=== PATIENT | female | born 1980 | race Caucasian/White ===

== ENCOUNTER → 2018-04-21 | Outpatient (CLI) | payer BC ==
--- NOTE | 2018-04-21 15:28 | CONS ---
CONSULTATION DATE OF SERVICE: 04/21/2018 A 37-year-old lady who has been evaluated in the [facility] for possible obstructive sleep apnea and for sleep-walking. HISTORY OF PRESENT ILLNESS, SLEEP/WAKE EVALUATION: Patient has history of sleep terrors in young childhood and a young age. Also, possible history of restless legs syndrome. She was treated when she was a 17-year-old, she was treated for these disorders, later with clonazepam. Recently, no sleep terrors, but she still has episodes when she goes out of bed and does not remember these episodes. No out of dream movements. Usually no dreams. Her sleep schedule from 11 p.m. to 8 a.m. basically 7 days a week. Sometimes she has problem with falling asleep for more than 30 minutes, but not more than 1 hour. No TV in bedroom. She wakes up from sleep several times with possible nocturia. Sometimes wake up with panic attacks, screaming and walking. Again, she does not remember these episodes. In the morning. she wakes up tired, worries about her sleep. Garrison Sleepiness Scale is 7. Oximetry was done, which showed episodes of oxygen desaturation during the sleep. PAST MEDICAL HISTORY: Positive for hypertension, polycystic ovary. MEDICATIONS: Atenolol, chlorthalidone, metformin, potassium supplement. PAST SURGICAL HISTORY: None. SOCIAL HISTORY: Negative for smoking. Alcohol consumption occasional. FAMILY HISTORY: Hypertension, hyperlipidemia, arthritis, sinus headaches, sleep apnea, snoring, acid reflux, nasal polyps. REVIEW OF SYSTEMS: Awakenings from sleep, episodes of sleep walking. PHYSICAL EXAM: A pleasant lady without distress, BP 123/87, HR 80, RR 16, height 5 and 4, weight 228, body mass index 39.1, temperature 97.3, oxygen saturation at room air 98%. Oropharynx extremely low position of soft palate. Mallampati IV. Neck is 15-1/2 inches in circumference. ABDOMEN: Obese. HEENT PERRLA, EOMI, evaluation of oropharynx showed tongue protrudes midline. LUNGS Clear to percussion and to auscultation. Good air exchange. No wheezing or rhonchi. HEART S1, S2 regular. No murmurs, gallops, or rubs. EXTREMITIES No clubbing or cyanosis. ONCOLOGY NAVIGATOR Awake, alert, and oriented X3. Cranial nerves 2 to 7 intact. There is no fasciculation or atrophy. noted. No focal deficits observed. IMPRESSION: 1. Snoring, multiple awakenings from sleep, extremely low position of soft palate, obstructive sleep apnea-hypopnea syndrome. 2. History of sleep terrors sleep terrors. 3. Episodes of sleepwalking. 4. Obesity, body mass index 39.1. 5. Hypertension. 6. Polycystic ovary. PLAN: 1. Polysomnography for evaluation of patient's breathing during sleep. 2. CPAP/BiPAP titration if sleep study confirms obstructive sleep apnea-hypopnea syndrome. 3. Preferable position during sleep on the side. 4. No driving if patient feels any sleepiness. 5. I will see patient for follow up visit to explain results of testing and following plan. Thank you very much for allowing me to participate in the management of your patient. Sincerely, Macyol Wilkes MD, PhD, FAASM Diplomat of [employer] [place] [place] Adjuster of [facility] MMODL / IJN: [id number] /
== END ==
LOC: SLEEP 13:26
PROVIDERS: ATTEND Internal Medicine
DX: G47.33 Obstructive sleep apnea (adult) (pediatric) (principal); F51.3 Sleepwalking [somnambulism]; F51.4 Sleep terrors [night terrors]; E66.9 Obesity, unspecified; I10 Essential (primary) hypertension; E28.2 Polycystic ovarian syndrome; Z68.39 Body mass index [BMI] 39.0-39.9, adult; Z79.899 Other long term (current) drug therapy; Z79.84 Long term (current) use of oral hypoglycemic drugs
CPT/HCPCS: 99211

== ENCOUNTER 2018-05-04 10:23 | Inpatient (IN) | payer BC ==
--- NOTE | 2018-05-04 10:58 | ED ---
General Adult HPI - General Chief complaint: Abdominal Pain Stated complaint: Cramping, poss UTI Source: patient Mode of arrival: ambulatory Limitations: no limitations - History of Present Illness Initial comments: Dictation was produced using Deans[employer] dictation software. please excuse any grammatical, word or spelling errors. Chief Complaint: 37-year-old female past medical history polycystic ovarian syndrome and hypertension presents with suprapubic pain. History of Present Illness: She has a 37-year-old female presents with suprapubic pain. Patient was seen by her primary care physician 2 days ago where she was diagnosed with urinary tract infection. Patient is given prescription for Bactrim. She states that the urinalysis was unequivocal yesterday. Patient states she recently started her period. She states she's been having worsening pain to the suprapubic area. She does have some mild burning with urination. Patient has had menstrual cramps in the past however she reports that this is slightly different. No nausea or vomiting. No diarrhea or changes in bowel habits. She states she had a fever yesterday of 101. She however does not feel like she is having constitutional symptoms now. She feels as though the pain is worse in her left lower quadrant. The ROS documented in this emergency department record has been reviewed and confirmed by me. Those systems with pertinent positive or negative responses have been documented in the HPI. All other systems are other negative and/or noncontributory. - Related Data Home Medications Medication Instructions Recorded Confirmed Acetaminophen Tab [Tylenol Tab] 1,000 mg PO Q6HR PRN 05/04/18 05/04/18 Atenolol/Chlorthalidone 0.5 tab PO BID 05/04/18 05/04/18 [Atenolol-Chlorthalidone 50-25] Potassium Gluconate 99 mg PO W/SUPPER 05/04/18 05/04/18 Sulfamethox-Tmp 800-160Mg [Bactrim 1 tab PO Q12HR 05/04/18 05/04/18 DS 800-160 mg] metFORMIN HCL [metFORMIN HCL ER] 750 mg PO W/SUPPER 05/04/18 05/04/18 Allergies Allergy/AdvReac Type Severity Reaction Status Date / Time No Known Allergies Allergy Verified 05/04/18 11:03 Review of Systems ROS Statement: Those systems with pertinent positive or pertinent negative responses have been documented in the HPI. ROS Other: All systems not noted in ROS Statement are negative. Past Medical History Past Medical History: Hypertension Additional Past Medical History / Comment(s): PCOS History of Any Multi-Drug Resistant Organisms: None Reported Past Surgical History: No Surgical Hx Reported Past Psychological History: No Psychological Hx Reported Smoking Status: Never smoker Past Alcohol Use History: None Reported Past Drug Use History: None Reported General Exam - General Exam Comments Initial Comments: PHYSICAL EXAM: General Impression: Alert and oriented x3, not in acute distress HEENT: Normocephalic atraumatic, extra-ocular movements intact, pupils equal and reactive to light bilaterally, mucous membranes moist. Cardiovascular: Heart regular rate and rhythm, S1&S2 audible, no murmurs, rubs or gallops Chest: Lungs clear to auscultation bilaterally, no rhonchi, no wheeze, no rales Abdomen: Mild tenderness to palpation in the left lower quadrant. Musculoskeletal: Pulses present and equal in all extremities, no peripheral edema Motor: Power 5/5 bilaterally, no focal deficits noted Neurological: CN II-XII grossly intact, no focal motor or sensory deficits noted Skin: Intact with no visualized rashes Psych: Normal affect and mood Limitations: no limitations Course Vital Signs 05/04/18 10:39 Temperature 97.6 F Pulse Rate 87 Respiratory 16 Rate Blood Pressure 134/91 O2 Sat by Pulse 97 Oximetry Medical Decision Making - Medical Decision Making ED course:-year-old female presents with pelvic pain and urinary symptoms. Vital signs upon arrival are within acceptable limits.Return evaluation obtained. Patient is leukocytosis of 20.3. There is high neutrophil predilection. Metabolic panel is unremarkable. Urinalysis shows 25 red blood cells. Transvaginal ultrasound was obtained looking for pelvic pathology. No findings seen on transvaginal ultrasound to account for patient's symptoms. CT abdomen and pelvis was obtained showing acute diverticulitis at the mid sigmoid with perforation and air tracking up to the peritoneum approximately 14 cm. discussed patient case with general surgeon who requests to keep the patient down here in emergency department for evaluation and possible operative intervention.Patient was evaluated by Dr. Woodall who requests the patient be admitted to his service. He states he will observe the patient to determine need for operative intervention. At this time patient is not cooperative patient to operating room. He does request so sent. Patient admitted to general surgery. - Lab Data Result diagrams: 05/04/18 11:18 05/04/18 11:18 Lab Results 05/04/18 05/04/18 05/04/18 Range/Units 11:18 11:18 11:18 WBC (3.8-10.6) k/uL RBC (3.80-5.40) m/uL Hgb (11.4-16.0) gm/dL Hct (34.0-46.0) % MCV (80.0-100.0) fL MCH (25.0-35.0) pg MCHC (31.0-37.0) g/dL RDW (11.5-15.5) % Plt Count (150-450) k/uL Neutrophils % (Manual) % Band Neutrophils % % Lymphocytes % (Manual) % Monocytes % (Manual) % Neutrophils # (Manual) (1.3-7.7) k/uL Lymphocytes # (Manual) (1.0-4.8) k/uL Monocytes # (Manual) (0-1.0) k/uL Nucleated RBCs (0-0) /100 WBC Manual Slide Review RBC Morphology Sodium 138 (137-145) mmol/L Potassium 3.6 (3.5-5.1) mmol/L Chloride 97 L (98-107) mmol/L Carbon Dioxide 27 (22-30) mmol/L Anion Gap 14 mmol/L BUN 12 (7-17) mg/dL Creatinine 0.81 (0.52-1.04) mg/dL Est GFR (CKD-EPI)AfAm >90 (>60 ml/min/1.73 sqM) Est GFR (CKD-EPI)NonAf >90 (>60 ml/min/1.73 sqM) Glucose 119 H (74-99) mg/dL Calcium 8.9 (8.4-10.2) mg/dL Urine Color Yellow Urine Appearance Clear (Clear) Urine pH 6.5 (5.0-8.0) Ur Specific Harper 1.007 (1.001-1.035) Urine Protein Trace H (Negative) Urine Glucose (UA) Negative (Negative) Urine Ketones Negative (Negative) Urine Blood Moderate H (Negative) Urine Nitrite Negative (Negative) Urine Bilirubin Negative (Negative) Urine Urobilinogen 4.0 (<2.0) mg/dL Ur Leukocyte Esterase Negative (Negative) Urine RBC 25 H (0-5) /hpf Urine WBC 5 (0-5) /hpf Ur Squamous Epith Cells <1 (0-4) /hpf Urine Mucus Rare H (None) /hpf Urine HCG, Qual Not Detected (Not Detectd) 05/04/18 Range/Units 11:18 WBC 28.3 H (3.8-10.6) k/uL RBC 5.06 (3.80-5.40) m/uL Hgb 14.1 (11.4-16.0) gm/dL Hct 42.4 (34.0-46.0) % MCV 83.8 (80.0-100.0) fL MCH 27.8 (25.0-35.0) pg MCHC 33.2 (31.0-37.0) g/dL RDW 14.8 (11.5-15.5) % Plt Count 421 (150-450) k/uL Neutrophils % (Manual) 91 % Band Neutrophils % 3 % Lymphocytes % (Manual) 3 % Monocytes % (Manual) 4 % Neutrophils # (Manual) 26.60 H (1.3-7.7) k/uL Lymphocytes # (Manual) 0.85 L (1.0-4.8) k/uL Monocytes # (Manual) 1.13 H (0-1.0) k/uL Nucleated RBCs 0 (0-0) /100 WBC Manual Slide Review Performed RBC Morphology Normal Sodium (137-145) mmol/L Potassium (3.5-5.1) mmol/L Chloride (98-107) mmol/L Carbon Dioxide (22-30) mmol/L Anion Gap mmol/L BUN (7-17) mg/dL Creatinine (0.52-1.04) mg/dL Est GFR (CKD-EPI)AfAm (>60 ml/min/1.73 sqM) Est GFR (CKD-EPI)NonAf (>60 ml/min/1.73 sqM) Glucose (74-99) mg/dL Calcium (8.4-10.2) mg/dL Urine Color Urine Appearance (Clear) Urine pH (5.0-8.0) Ur Specific Harper (1.001-1.035) Urine Protein (Negative) Urine Glucose (UA) (Negative) Urine Ketones (Negative) Urine Blood (Negative) Urine Nitrite (Negative) Urine Bilirubin (Negative) Urine Urobilinogen (<2.0) mg/dL Ur Leukocyte Esterase (Negative) Urine RBC (0-5) /hpf Urine WBC (0-5) /hpf Ur Squamous Epith Cells (0-4) /hpf Urine Mucus (None) /hpf Urine HCG, Qual (Not Detectd) Disposition Clinical Impression: Diverticulitis of large intestine with complication Disposition: ADMITTED IP TO THIS HOSP Condition: Fair Referrals: Elena Thomson MD [Primary Care Provider] - 1-2 days Decision Time: 13:52
[2018-05-04 11:47] LABS: Appearance,Urine Clear (Clear); Color,Urine Yellow; PH, Urine 6.5 (5.0-8.0); Protein,Urine Trace (Negative); Specific Gravity,Urine 1.007 (1.001-1.035)
[2018-05-04 11:48] LABS: Bilirubin,Urine Negative (Negative); Blood,Urine Moderate (Negative); Glucose,Urine (UA) Negative (Negative); Ketones,Urine Negative (Negative); Leukocyte Esterase,Urine Negative (Negative); Mucus,Urine Rare /hpf; Nitrite,Urine Negative (Negative); RBC,Urine 25 /hpf (0-5); Squamous Epithelial Cell,Urine <1 /hpf (0-4); WBC,Urine 5 /hpf (0-5)
[2018-05-04 11:55] LABS: HCT 42.4 % (34.0-46.0); HGB 14.1 gm/dL (11.4-16.0); MCH 27.8 pg (25.0-35.0); MCHC 33.2 g/dL (31.0-37.0); MCV 83.8 fL (80.0-100.0); Mean Platelet Volume 6.4; Platelet Count 421 k/uL (150-450); RBC 5.06 m/uL (3.80-5.40); RDW 14.8 % (11.5-15.5); WBC 28.3 k/uL (3.8-10.6)
[2018-05-04 11:56] LABS: Anion Gap 14 mmol/L; Blood Urea Nitrogen 12 mg/dL (7-17); Calcium 8.9 mg/dL (8.4-10.2); Carbon Dioxide 27 mmol/L (22-30); Chloride 97 mmol/L (98-107); Glucose 119 mg/dL (74-99); Potassium 3.6 mmol/L (3.5-5.1); Sodium 138 mmol/L (137-145)
--- NOTE | 2018-05-04 12:03 | US ---
EXAMINATION TYPE: US transvaginal DATE OF EXAM: 05/04/2018 COMPARISON: None CLINICAL HISTORY: 37-year-old female Pain. Cramping starting this morning. LLQ pain. Patient states germain when urinates. Fever yesterday. Patient states starting period today. TECHNIQUE: Transvaginal (TV). Date of LMP: 05/04/2018, G0 FINDINGS: EXAM MEASUREMENTS: Uterus: 8.6 x 4.4 x 3.3 cm Endometrial Stripe: 0.8 cm 1. Uterus: Anteverted wnl as visualized 2. Endometrium: wnl 3. Right Ovary: Obscured by overlying bowel gas 4. Left Ovary: Obscured by overlying bowel gas 5. Bilateral Adnexa: wnl 6. Posterior cul-de-sac: No free fluid 7. Cervix- nabothian cyst. Mild fluid seen within canal. IMPRESSION: 1. Cervical nabothian cyst and a small amount of nonspecific fluid within the endocervical canal. 2. Neither ovary could be visualized. No pelvic free fluid.
[2018-05-04 12:13] LABS: Band Neutrophils % 3 %; Lymphocytes # (M) 0.85 k/uL (1.0-4.8); Monocytes # (M) 1.13 k/uL (0-1.0); Neutrophils % (M) 91 %; Nucleated Red Blood Cells 0 /100 WBC (0-0); Total Cells Counted 200
--- NOTE | 2018-05-04 12:58 | CT ---
EXAMINATION TYPE: CT abdomen pelvis w con DATE OF EXAM: 05/04/2018 COMPARISON: NONE HISTORY: 37-year-old female Pelvic pain for 4 days TECHNIQUE: Contiguous axial scanning of the abdomen and pelvis following administration of 100 ml Iso suly 300 IV contrast. Delayed images through the kidneys and coronal/sagittal reconstructions perform ed. CT DLP: 1483.9 mGycm Automated exposure control for dose reduction was used. FINDINGS: Heart is normal size without pericardial effusion. Mild dependent atelectasis in the posterior lung b ases. No pleural effusion. Small hiatal hernia. Liver measures 19.3 cm with diffuse low-attenuation. There is some focal fatty sparing along the gall bladder fossa, axial image 21. Portal venous system is patent. No biliary ductal dilatation. Small di verticulum of the second portion of the duodenum projecting into the pancreatic head region. Adrenal glands, kidneys, and pancreas appear within normal limits. The measures upper limits of jerrod l in size at 13.1 cm. No dilated small bowel, free fluid, or free air. Normal appendix. Mild overall stool burden. There is sigmoid diverticulosis with moderate circumferential wall thickening and surrounding inflamm ation at the mid sigmoid. Mild tracking free fluid and free intraperitoneal air tracking up the poste rior midline spanning 13.7 cm craniocaudal dimension measuring 3.3 cm wide, refer to coronal images 4 6 and 56 for some tax representative images. No abscess formation. Some prominent fluid-filled small bowel loops in the lower abdomen suggests a secondary ileus. Bladder partially distended. Uterus is visualized. Ovaries not clearly seen. No pelvic lymphadenopath y. Bones: No osseous destructive process. IMPRESSION: 1. ACUTE DIVERTICULITIS CENTERED AT THE MID SIGMOID COMPLICATED BY PERFORATION. AIR TRACKS UP 13.7 CM ALONG THE PERITONEUM. THERE IS NO ABSCESS AT THIS TIME. FINDINGS CALLED TO DR. CEBALLOS IN THE ER AT 12:55 PM. 2. A SECONDARY MILD SMALL BOWEL ILEUS. 3. HEPATOMEGALY (19.3 CM) WITH HEPATIC STEATOSIS. ALSO, SMALL HIATAL HERNIA.
[2018-05-04] MEDS ORDERED: PIPERACILLIN-TAZOBACTAM 3.375 GM in DEXTROSE/WATER 1 50ML.BAG IVPB STA (13:00)
[2018-05-04] MEDS: SODIUM CHLORIDE 0.9% 500 ML IV STA ×2 (13:34→23:59)
[2018-05-04] MEDS ORDERED: NALOXONE 0.4 MG/ML 1 ML VIAL IV PRN (13:47)
--- NOTE | 2018-05-04 14:14 | P.GSHP ---
History of Present Illness H&P Date: 05/04/18 Chief Complaint: Abdominal pain This is a 37-year-old female who developed severe lower quadrant abdominal pain. The patient was worked up the emergency room. She is found have evidence of diverticulitis with microperforation. Patient states that she feels generally feels well and does have some limited pain in the left lower quadrant. She does not appear to be in any significant distress. Past Medical History Past Medical History: Hypertension Additional Past Medical History / Comment(s): PCOS History of Any Multi-Drug Resistant Organisms: None Reported Past Surgical History: No Surgical Hx Reported Past Psychological History: No Psychological Hx Reported Smoking Status: Never smoker Past Alcohol Use History: None Reported Past Drug Use History: None Reported Medications and Allergies Home Medications Medication Instructions Recorded Confirmed Type Acetaminophen Tab [Tylenol Tab] 1,000 mg PO Q6HR PRN 05/04/18 05/04/18 History Atenolol/Chlorthalidone 0.5 tab PO BID 05/04/18 05/04/18 History [Atenolol-Chlorthalidone 50-25] Potassium Gluconate 99 mg PO W/SUPPER 05/04/18 05/04/18 History Sulfamethox-Tmp 800-160Mg [Bactrim 1 tab PO Q12HR 05/04/18 05/04/18 History DS 800-160 mg] metFORMIN HCL [metFORMIN HCL ER] 750 mg PO W/SUPPER 05/04/18 05/04/18 History Allergies Allergy/AdvReac Type Severity Reaction Status Date / Time No Known Allergies Allergy Verified 05/04/18 11:03 Surgical - Exam Vital Signs Temp Pulse Resp BP Pulse Ox 97.6 F 87 16 134/91 97 05/04/18 10:39 05/04/18 10:39 05/04/18 10:39 05/04/18 10:39 05/04/18 10:39 - General well developed, no distress - Eyes PERRL - ENT normal pinna - Neck no masses - Respiratory normal expansion - Cardiovascular Rhythm: regular - Abdomen Abdomen soft. There is tenderness left lower quadrant. There is no rebound or guarding. Abdomen: soft Results - Labs 05/04/18 11:18 05/04/18 11:18 Abnormal Lab Results - Last 24 Hours (Table) 10/17/18 10/17/18 10/17/18 Range/Units 11:18 11:18 11:18 WBC 28.3 H (3.8-10.6) k/uL Neutrophils # (Manual) 26.60 H (1.3-7.7) k/uL Lymphocytes # (Manual) 0.85 L (1.0-4.8) k/uL Monocytes # (Manual) 1.13 H (0-1.0) k/uL Chloride 97 L (98-107) mmol/L Glucose 119 H (74-99) mg/dL Urine Protein Trace H (Negative) Urine Blood Moderate H (Negative) Urine RBC 25 H (0-5) /hpf Urine Mucus Rare H (None) /hpf Diabetes panel 05/04/18 Range/Units 11:18 Sodium 138 (137-145) mmol/L Potassium 3.6 (3.5-5.1) mmol/L Chloride 97 L (98-107) mmol/L Carbon Dioxide 27 (22-30) mmol/L BUN 12 (7-17) mg/dL Creatinine 0.81 (0.52-1.04) mg/dL Glucose 119 H (74-99) mg/dL Calcium 8.9 (8.4-10.2) mg/dL Calcium panel 05/04/18 Range/Units 11:18 Calcium 8.9 (8.4-10.2) mg/dL Pituitary panel 05/04/18 Range/Units 11:18 Sodium 138 (137-145) mmol/L Potassium 3.6 (3.5-5.1) mmol/L Chloride 97 L (98-107) mmol/L Carbon Dioxide 27 (22-30) mmol/L BUN 12 (7-17) mg/dL Creatinine 0.81 (0.52-1.04) mg/dL Glucose 119 H (74-99) mg/dL Calcium 8.9 (8.4-10.2) mg/dL Adrenal panel 05/04/18 Range/Units 11:18 Sodium 138 (137-145) mmol/L Potassium 3.6 (3.5-5.1) mmol/L Chloride 97 L (98-107) mmol/L Carbon Dioxide 27 (22-30) mmol/L BUN 12 (7-17) mg/dL Creatinine 0.81 (0.52-1.04) mg/dL Glucose 119 H (74-99) mg/dL Calcium 8.9 (8.4-10.2) mg/dL - Imaging CT scan - abdomen: report reviewed (Sigmoid diverticulitis with evidence of small amount of free air) Assessment and Plan Assessment: Diverticulitis with microperforation. Patient has had air tracking along the mesentery. The patient will remain nothing by mouth with IV antibiotic. She' ll be watched carefully. I discussed with her that if her condition changes she may require urgent exploratory laparotomy with possible colostomy.
[2018-05-04] MEDS: PANTOPRAZOLE 40 MG/10 ML VIAL IV SCH (14:41)
[2018-05-04] MEDS: HYDROmorphone 1 MG/ML 1 ML SYRINGE IVP PRN (15:12)
--- NOTE | 2018-05-04 15:15 | P.HPIM ---
History of Present Illness H&P Date: 05/04/18 Chief Complaint: abdominal pain This is a 37-year-old female patient of Dr. Thomson. Patient presents to emergency room with complaints of increasing abdominal pain. Patient states she was seen by her PCP 2 days ago and was diagnosed with urinary tract infection and was started on Bactrim. Patient states that over the past 2 days suprapubic pain has become significantly worse. Patient does report that she is on her menstrual cycle but her pain is significantly worse than She normally experiences. Patient does state she had a fever of 101 yesterday. Patient's medical history includes PCOS and essential hypertension Transvaginal ultrasound completed showing cervical nabothian cyst and a small amount of nonspecific fluid within the endocervical canal. No pelvic free fluid seen. CT of abdomen and pelvis completed showing acute diverticulitis centered at the mid sigmoid complicated by perforation. Air tracks up 13.7 cm on the peritoneum. There is no abscess. Secondary mild small bowel ileus. Hepatomegaly with hepatic steatosis. Also, small hiatal hernia. WBC 28.3. Dr. Woodall tilted for surgical services. Lactic acid have been ordered. Dr. Myers consulted for infectious disease. Patient started on Flagyl and Zosyn. Blood culture will be ordered . This time patient is been lower abdominal pain. Patient denies chest pain. Patient denies nausea vomiting or diarrhea. Patient denies urinary burning or frequency Review of Systems Please refer to HPI otherwise unremarkable Past Medical History Past Medical History: Hypertension Additional Past Medical History / Comment(s): 05-04-18 pt wants flu vaccine while here. PCOS, pt stated dx with uti started on bactrim 05-03-18 took first dose at 5pm.. pt stated she is scheduled for a sleep study next week History of Any Multi-Drug Resistant Organisms: None Reported Past Surgical History: No Surgical Hx Reported Additional Past Surgical History / Comment(s): wisdom teeth extracted Past Anesthesia/Blood Transfusion Reactions: No Reported Reaction Smoking Status: Never smoker - Past Family History Mother Family Medical History: Asthma, GERD/Reflux, Hypertension Additional Family Medical History / Comment(s): allergies, ibs Father Family Medical History: Hyperlipidemia, Hypertension Medications and Allergies Home Medications Medication Instructions Recorded Confirmed Type Acetaminophen Tab [Tylenol Tab] 1,000 mg PO Q6HR PRN 05/04/18 05/04/18 History Atenolol/Chlorthalidone 0.5 tab PO BID 05/04/18 05/04/18 History [Atenolol-Chlorthalidone 50-25] Potassium Gluconate 99 mg PO W/SUPPER 05/04/18 05/04/18 History Sulfamethox-Tmp 800-160Mg [Bactrim 1 tab PO Q12HR 05/04/18 05/04/18 History DS 800-160 mg] metFORMIN HCL [metFORMIN HCL ER] 750 mg PO W/SUPPER 05/04/18 05/04/18 History Allergies Allergy/AdvReac Type Severity Reaction Status Date / Time No Known Allergies Allergy Verified 05/04/18 11:03 Physical Exam Vitals: Vital Signs Temp Pulse Pulse Resp BP BP Pulse Ox 05/04/18 14:53 98.9 F 96 20 112/66 100 05/04/18 14:25 98.3 F 05/04/18 14:20 128/72 99 05/04/18 13:50 115/82 99 05/04/18 10:39 97.6 F 87 16 134/91 97 Intake and Output 05/04/18 05/04/18 05/04/18 06:59 14:59 22:59 Other: Weight 102.965 kg Head normocephalic Neck supple Lungs clear to auscultation bilaterally no wheezing or crackles Heart regular rate and rhythm S1-S2, no rub or gallop Abdomen lower abdomen tender to palpation Extremities no edema Neuro alert and orientated to 3 Results CBC & Chem 7: 05/04/18 11:18 05/04/18 11:18 Labs: Abnormal Lab Results - Last 24 Hours (Table) 05/04/18 05/04/18 05/04/18 Range/Units 11:18 11:18 11:18 WBC 28.3 H (3.8-10.6) k/uL Neutrophils # (Manual) 26.60 H (1.3-7.7) k/uL Lymphocytes # (Manual) 0.85 L (1.0-4.8) k/uL Monocytes # (Manual) 1.13 H (0-1.0) k/uL Chloride 97 L (98-107) mmol/L Glucose 119 H (74-99) mg/dL Urine Protein Trace H (Negative) Urine Blood Moderate H (Negative) Urine RBC 25 H (0-5) /hpf Urine Mucus Rare H (None) /hpf Assessment and Plan Assessment: 1. Abdominal pain related to diverticulitis with perforation. CT of abdomen completed showing acute diverticulitis centered at the mid sigmoid completed by perforation. with Air tracking. A secondary mild small bowel ileus. Hepatomegaly with hepatic steatosis. Also small hiatal hernia. Transvaginal ultrasound completed showing cervical nobothian system is normal and nonspecific fluid within the endocervical canal. Dr. Woodall consulted for sugical consult. Per surgical services patient will be made nothing by mouth and IV antibiotics. She will be watched carefully at this time if her condition changes she may require urgent exploratory lap with possible colostomy per surgical services 2. Leukocytosis. White blood cell 28.3. Lactic acid has been ordered. Urine and blood cultures ordered. Dr. Puente been consulted for infectious disease. Patient currently on Zosyn and Flagyl for antibiotics. Patient does reports she had fever of 101 at home. 3. History of essential hypertension. Home medications resumed 4. History of PCOS. Patient states she takes metformin for her PCOS. Currently on hold. [facility]. Prophylaxis Protonix Time with Patient: Greater than 30 (Greater than 60% of the total time spent in counseling and coordination of care. I performed an examination of the patient and discussed their management with the Nurse Practitioner. I have reviewed the Nurse Practitioner's notes and agree with the documented findings and plan of care)
[2018-05-04] MEDS: metroNIDAZOLE-NS PMX 500 MG in SALINE 1 100ML.BAG IVPB SCH ×2 (16:14→23:56)
[2018-05-04] MEDS: ACETAMINOPHEN TAB 325 MG TAB PO PRN (20:42)
[2018-05-04] MEDS: ATENOLOL 25 MG TAB PO SCH (20:43)
[2018-05-04] MEDS: CHLORTHALIDONE 25 MG TAB PO SCH (20:43)
[2018-05-04] MEDS: PIPERACILLIN-TAZOBACTAM 3.375 GM in DEXTROSE/WATER 1 50ML.BAG IVPB SCH (20:46)
[2018-05-05] MEDS: ACETAMINOPHEN TAB 325 MG TAB PO PRN ×3 (04:49→15:16)
[2018-05-05] MEDS: PIPERACILLIN-TAZOBACTAM 3.375 GM in DEXTROSE/WATER 1 50ML.BAG IVPB SCH ×3 (04:52→20:29)
[2018-05-05] MEDS: HYDROmorphone 1 MG/ML 1 ML SYRINGE IVP PRN (07:59)
[2018-05-05] MEDS: metroNIDAZOLE-NS PMX 500 MG in SALINE 1 100ML.BAG IVPB SCH ×2 (08:00→17:00)
[2018-05-05 08:21] LABS: Basophils % (A) 0 %; Eosinophils # (A) 0.2 k/uL (0-0.7); Eosinophils % (A) 1 %; HCT 36.6 % (34.0-46.0); Lymphocytes # (A) 1.1 k/uL (1.0-4.8); Lymphocytes % (A) 5 %; MCH 27.6 pg (25.0-35.0); MCHC 32.8 g/dL (31.0-37.0); MCV 84.2 fL (80.0-100.0); Mean Platelet Volume 6.5; Monocytes # (A) 0.8 k/uL (0-1.0); Monocytes % (A) 4 %; Neutrophils % (A) 90 %; Platelet Count 348 k/uL (150-450); RBC 4.35 m/uL (3.80-5.40); RDW 14.9 % (11.5-15.5); WBC 21.3 k/uL (3.8-10.6)
[2018-05-05 08:42] LABS: ALT 33 U/L (9-52); AST 20 U/L (14-36); Albumin 3.1 g/dL (3.5-5.0); Alkaline Phosphatase 66 U/L (38-126); Anion Gap 14 mmol/L; Blood Urea Nitrogen 14 mg/dL (7-17); Calcium 7.7 mg/dL (8.4-10.2); Carbon Dioxide 23 mmol/L (22-30); Chloride 103 mmol/L (98-107); Glucose 105 mg/dL (74-99); Potassium 2.8 mmol/L (3.5-5.1); Sodium 140 mmol/L (137-145); Total Bilirubin 1.4 mg/dL (0.2-1.3); Total Protein 6.4 g/dL (6.3-8.2)
[2018-05-05] MEDS: PANTOPRAZOLE 40 MG/10 ML VIAL IV SCH (09:33)
[2018-05-05] MEDS: CHLORTHALIDONE 25 MG TAB PO SCH ×2 (09:33→20:28)
--- NOTE | 2018-05-05 09:34 | P.PN ---
Subjective Progress Note Date: 05/05/18 37-year-old female seen at the bedside this morning patient reports last night having several watery liquid stools no blood noted in stool this morning the patient had an episode left lower quadrant abdominal pain stated the discomfort was similar to what she felt on admission patient stated did receive IV pain medication which was effective for pain control abdomen is soft mild tenderness to the left lower quadrant no nausea no vomiting no difficulty in urinating CAT scan abdomen and pelvis obtained in the emergency room showed acute diverticulitis centered at the mid sigmoid colon complicated by perforation Objective - Vital Signs Vital signs: Vital Signs Temp 97.5 F L 05/05/18 07:52 Pulse 72 05/05/18 07:52 Resp 16 05/05/18 07:52 BP 110/73 05/05/18 07:52 Pulse Ox 96 05/05/18 07:52 Intake & Output 05/04/18 05/05/18 05/05/18 18:59 06:59 18:59 Output Total 300 Balance -300 Weight 102.965 kg Output: Urine 300 Other: Voiding Method Toilet Toilet # Voids 1 1 1 # Bowel Movements 1 1 - Exam Physical exam 37-year-old female resting in bed just received pain medication for left lower quadrant abdominal pain appears in no acute distress Lungs adequate air movement bilaterally no shortness of breath noted Heart S1-S2 audible regular Abdomen obese soft and mild tenderness to the left lower quadrant not distended no nausea no vomiting tolerating ice chips states urinating no difficulty several loose stools last evening Extremities no edema - Labs CBC & Chem 7: 05/05/18 08:00 05/05/18 08:00 Labs: Abnormal Lab Results - Last 24 Hours (Table) 05/04/18 05/04/18 05/04/18 Range/Units 11:18 11:18 11:18 WBC 28.3 H (3.8-10.6) k/uL Neutrophils # (1.3-7.7) k/uL Neutrophils # (Manual) 26.60 H (1.3-7.7) k/uL Lymphocytes # (Manual) 0.85 L (1.0-4.8) k/uL Monocytes # (Manual) 1.13 H (0-1.0) k/uL Potassium (3.5-5.1) mmol/L Chloride 97 L (98-107) mmol/L Glucose 119 H (74-99) mg/dL Calcium (8.4-10.2) mg/dL Total Bilirubin (0.2-1.3) mg/dL Albumin (3.5-5.0) g/dL Urine Protein Trace H (Negative) Urine Blood Moderate H (Negative) Urine RBC 25 H (0-5) /hpf Urine Mucus Rare H (None) /hpf 05/05/18 05/05/18 Range/Units 08:00 08:00 WBC 21.3 H (3.8-10.6) k/uL Neutrophils # 19.0 H (1.3-7.7) k/uL Neutrophils # (Manual) (1.3-7.7) k/uL Lymphocytes # (Manual) (1.0-4.8) k/uL Monocytes # (Manual) (0-1.0) k/uL Potassium 2.8 L (3.5-5.1) mmol/L Chloride (98-107) mmol/L Glucose 105 H (74-99) mg/dL Calcium 7.7 L (8.4-10.2) mg/dL Total Bilirubin 1.4 H (0.2-1.3) mg/dL Albumin 3.1 L (3.5-5.0) g/dL Urine Protein (Negative) Urine Blood (Negative) Urine RBC (0-5) /hpf Urine Mucus (None) /hpf Microbiology - Last 24 Hours (Table) 05/04/18 11:18 Urine Culture - Preliminary Urine,Voided Assessment and Plan Assessment: Impression Present on admission severe left lower quadrant abdominal pain suspect due to diverticulitis with microperforation Electrolyte abnormality hypokalemia Present on admission leukocytosis febrile suspect due to diverticulitis Plan Await recommendations by infectious disease Dr. Puente Continue IV Zosyn and Flagyl as ordered Pain control Potassium to be replaced DVT and GI prophylaxis Repeat labs in the morning Keep nothing by mouth for now Further surgical recommendations pending clinical course Will follow with you The above impression and plan of care have been discussed and directed by signing physician. Farhana Garcia nurse practitioner acting as scribe for signing physician.
[2018-05-05] MEDS: ATENOLOL 25 MG TAB PO SCH ×2 (09:37→20:29)
[2018-05-05] MEDS: POTASSIUM CHLORIDE 20 MEQ in WATER FOR INJECTION 1 100ML.BAG IVPB SCH ×2 (09:40→12:48)
[2018-05-05] MEDS: SODIUM CHLORIDE 0.9% 500 ML IV STA (09:49)
--- NOTE | 2018-05-05 12:48 | P.PN ---
Subjective Progress Note Date: 05/05/18 This is a 37-year-old female patient of Dr. Thomson. Patient presents to emergency room with complaints of increasing abdominal pain. Patient states she was seen by her PCP 2 days ago and was diagnosed with urinary tract infection and was started on Bactrim. Patient states that over the past 2 days suprapubic pain has become significantly worse. Patient does report that she is on her menstrual cycle but her pain is significantly worse than She normally experiences. Patient does state she had a fever of 101 yesterday. Patient's medical history includes PCOS and essential hypertension Transvaginal ultrasound completed showing cervical nabothian cyst and a small amount of nonspecific fluid within the endocervical canal. No pelvic free fluid seen. CT of abdomen and pelvis completed showing acute diverticulitis centered at the mid sigmoid complicated by perforation. Air tracks up 13.7 cm on the peritoneum. There is no abscess. Secondary mild small bowel ileus. Hepatomegaly with hepatic steatosis. Also, small hiatal hernia. WBC 28.3. Dr. Woodall tilted for surgical services. Lactic acid have been ordered. Dr. Myers consulted for infectious disease. Patient started on Flagyl and Zosyn. Blood culture will be ordered . This time patient is been lower abdominal pain. Patient denies chest pain. Patient denies nausea vomiting or diarrhea. Patient denies urinary burning or frequency On 05/05/2018 patient is currently resting comfortably in bed. Patient states she is having some episodes of stools. Per surgical services waiting on surgical event intervention at this point. We'll continue to watch patient and administer IV antibiotics. Patient had temperature of 101.6. Lactic acid 1.6. At that time patient denies chest pain or shortness breath. Patient denies nausea vomiting. Patient denies any urinary burning or frequency. Objective - Vital Signs Vital signs: Vital Signs Temp 97.5 F L 05/05/18 07:52 Pulse 72 05/05/18 07:52 Resp 16 05/05/18 07:52 BP 110/73 05/05/18 07:52 Pulse Ox 96 05/05/18 07:52 Intake & Output 05/04/18 05/05/18 05/05/18 18:59 06:59 18:59 Output Total 300 Balance -300 Weight 102.965 kg Output: Urine 300 Other: Voiding Method Toilet Toilet # Voids 1 1 1 # Bowel Movements 1 1 - Exam Head normocephalic Neck supple Lungs clear to auscultation bilaterally no wheezing or crackles Heart regular rate and rhythm S1-S2, no rub or gallop Abdomen is soft nontender nondistended positive bowel sounds no hepatosplenomegaly Extremities no edema Neuro alert and orientated to 3 - Labs CBC & Chem 7: 05/05/18 08:00 05/05/18 08:00 Labs: Abnormal Lab Results - Last 24 Hours (Table) 05/05/18 05/05/18 Range/Units 08:00 08:00 WBC 21.3 H (3.8-10.6) k/uL Neutrophils # 19.0 H (1.3-7.7) k/uL Potassium 2.8 L (3.5-5.1) mmol/L Glucose 105 H (74-99) mg/dL Calcium 7.7 L (8.4-10.2) mg/dL Total Bilirubin 1.4 H (0.2-1.3) mg/dL Albumin 3.1 L (3.5-5.0) g/dL Microbiology - Last 24 Hours (Table) 05/04/18 11:18 Urine Culture - Preliminary Urine,Voided Assessment and Plan Assessment: 1. Abdominal pain related to diverticulitis with perforation. CT of abdomen completed showing acute diverticulitis centered at the mid sigmoid completed by perforation. with Air tracking. A secondary mild small bowel ileus. Hepatomegaly with hepatic steatosis. Also small hiatal hernia. Transvaginal ultrasound completed showing cervical nobothian system is normal and nonspecific fluid within the endocervical canal. Dr. Woodall consulted for sugical consult. Per surgical services patient will be made nothing by mouth and IV antibiotics. She will be watched carefully at this time if her condition changes she may require urgent exploratory lap with possible colostomy per surgical services 2. Leukocytosis. White blood cell 28.3. Lactic acid has been ordered. Urine and blood cultures ordered. Dr. Puente been consulted for infectious disease. Patient currently on Zosyn and Flagyl for antibiotics. Patient does reports she had fever of 101 at home. Lactic acid 1.6. The blood cell trending down to 21.3. Patient remains on Flagyl and Zosyn 3. History of essential hypertension. Home medications resumed 4. History of PCOS. Patient states she takes metformin for her PCOS. Currently on hold. DVT prophylaxis [facility]. Prophylaxis Protonix I performed an examination of the patient and discussed their management with the Nurse Practitioner. I have reviewed the Nurse Practitioner's notes and agree with the documented findings and plan of care
[2018-05-05] MEDS: SODIUM CHLORIDE 0.9% 1,000 ML IV SCH ×2 (15:20→20:16)
--- NOTE | 2018-05-06 | CONS ---
CONSULTATION DATE OF SERVICE: 05/05/2018. REASON FOR CONSULTATION: Abdominal abscess, diverticulitis and antibiotic recommendation. HISTORY OF PRESENT ILLNESS: The patient is a 37-year-old female who presented to the [facility] ER yesterday morning with chief complaints of abdominal pain that apparently has been going on for about 4 days prior to presentation to hospital. Pain has been mostly in the left lower abdominal area described to be more of a crampy nature of almost 7/10, with severe, it was associated with some nausea but did not have any episode of vomiting. No significant diarrhea or constipation. The patient did have some chills with fever. With these symptoms, the patient presented to the [facility] ER for further evaluation. The patient did have a fever of 101.6 degrees Fahrenheit and did have elevated white count of 20,000. The patient did have a CT abdomen and pelvis completed which shows evidence of sigmoid diverticulitis with perforation, but no drainable abscess. The patient was started on Zosyn and Flagyl. Infectious Disease was consulted for further recommendation regarding antibiotic therapy. At the time of my evaluation this afternoon, the patient's pain has slightly eased off. No further nausea and vomiting has been noticed. Currently patient has been n.p.o. Did have some loose stools though. No blood or mucus in it. REVIEW OF SYSTEMS: Constitutional: Positive for weakness along with the fever. Eyes: No complaint. ENT no complaint. Respiratory no complaint. Cardiovascular no complaint. Genitourinary no complaint. GASTROINTESTINAL: As per HPI. Musculoskeletal no complaint. Integumentary: No complaint. Psychological no complaint. Endocrine no complaint. Neurologic no complaint. PAST MEDICAL HISTORY: Hypertension, polycystic ovarian syndrome, UTI. PAST SURGICAL HISTORY: Ankle surgery. SOCIAL HISTORY: Mother with history of hypertension and asthma. Father history of hypertension and hyperlipidemia. ALLERGIES: No known drug allergies. MEDICATIONS: Medications include the patient is currently on Tylenol, Tenormin, Hygro[place], Dilaudid, Flagyl, Narcan, Protonix, Zosyn and IV fluids. PHYSICAL EXAMINATION: Blood pressure is 106/69, pulse of 75, temperature is 97.3, T-max is 101.6. She is 98% on room air. General description is a middle-aged female lying in bed in no distress. No tachypnea or accessory muscles of respiration use. HEENT: Shows no pallor or scleral icterus. Oral mucosal membranes are dry. No pharyngeal erythema or thrush. Neck trachea is central. No thyromegaly. LUNGS: Unlabored breathing, clear to auscultation anteriorly. No wheeze or crackles. Heart S1, S2. Regular rate and rhythm. ABDOMEN: Soft. Mildly tender for one layer. No guarding or rigidity. Extremities are no edema of the feet. Skin examination: No rash or mass palpable. Neurological: Patient is awake, alert, oriented times three. Mood and affect normal. LABS: Hemoglobin is 12 with a white count 1.3. Admission white count 28.3, BUN of 14, creatinine 0.82. Potassium is low . Urine has been negative. Stool for C difficile is negative. Blood cultures obtained, currently pending. DIAGNOSTIC IMPRESSION AND PLAN: Patient admitted to the hospital with abdominal pain, fever and elevated white count. Meeting criteria for sepsis present on admission , source being acute sigmoid diverticulitis with perforation, but no drainable abscess. The likely organism needed to cover will be the enteric gram-negative, both aerobes and anaerobes in a patient who has been recently in outpatient setting on oral antibiotic in the form of Bactrim, but no other antibiotics could be a sensitive pathogen such as E coli related reason and less likely gram-positive infection. PLAN: 1. Zosyn 3.375 g IV piggyback q.8 hours. 2. IV fluids and n.p.o. status to be maintained. 3. Depending upon clinical response as well as cultures to further adjust medication if needed. Thank you for this consultation. We will follow this patient along with you. MMODL / IJN: [id number] / MTDDiego
[2018-05-06] MEDS: metroNIDAZOLE-NS PMX 500 MG in SALINE 1 100ML.BAG IVPB SCH ×4 (00:22→23:48)
[2018-05-06] MEDS: PIPERACILLIN-TAZOBACTAM 3.375 GM in DEXTROSE/WATER 1 50ML.BAG IVPB SCH ×3 (05:51→21:12)
[2018-05-06] MEDS: SODIUM CHLORIDE 0.9% 1,000 ML IV SCH ×2 (05:52→08:36)
[2018-05-06] MEDS: ACETAMINOPHEN TAB 325 MG TAB PO PRN (06:00)
[2018-05-06 08:21] LABS: Basophils % (A) 0 %; Eosinophils # (A) 0.2 k/uL (0-0.7); Eosinophils % (A) 1 %; HCT 39.5 % (34.0-46.0); HGB 12.9 gm/dL (11.4-16.0); Lymphocytes # (A) 1.1 k/uL (1.0-4.8); Lymphocytes % (A) 7 %; MCH 27.6 pg (25.0-35.0); MCHC 32.5 g/dL (31.0-37.0); MCV 84.8 fL (80.0-100.0); Mean Platelet Volume 6.8; Monocytes # (A) 0.5 k/uL (0-1.0); Monocytes % (A) 4 %; Neutrophils # (A) 13.1 k/uL (1.3-7.7); Neutrophils % (A) 87 %; Platelet Count 427 k/uL (150-450); RBC 4.66 m/uL (3.80-5.40); RDW 14.9 % (11.5-15.5)
[2018-05-06] MEDS: CHLORTHALIDONE 25 MG TAB PO SCH ×2 (08:38→21:12)
[2018-05-06] MEDS: PANTOPRAZOLE 40 MG/10 ML VIAL IV SCH (08:39)
[2018-05-06] MEDS: ATENOLOL 25 MG TAB PO SCH ×2 (08:49→21:12)
[2018-05-06 08:53] LABS: ALT 18 U/L (9-52); AST 23 U/L (14-36); Albumin 3.6 g/dL (3.5-5.0); Alkaline Phosphatase 79 U/L (38-126); Anion Gap 16 mmol/L; Blood Urea Nitrogen 11 mg/dL (7-17); Calcium 8.4 mg/dL (8.4-10.2); Carbon Dioxide 21 mmol/L (22-30); Chloride 100 mmol/L (98-107); Glucose 89 mg/dL (74-99); Potassium 3.3 mmol/L (3.5-5.1); Sodium 137 mmol/L (137-145); Total Bilirubin 0.9 mg/dL (0.2-1.3); Total Protein 7.2 g/dL (6.3-8.2)
--- NOTE | 2018-05-06 11:55 | P.PN ---
Subjective Progress Note Date: 05/06/18 37-year-old female seen this morning up ambulating to the bathroom patient states there is an improvement in the left lower quadrant pain. Reports having several loose watery stools last night with abdominal cramping white count is down to 15. Potassium is 3.3 this morning the temp is 98.1 patients being followed by surgical service after CAT scan of the abdomen pelvis obtained in the emergency room showed acute diverticulitis mid sigmoid colon complicated by microperforation.currently on IV Zosyn Objective - Vital Signs Vital signs: Vital Signs Temp 98.1 F 05/06/18 08:35 Pulse 72 05/06/18 08:35 Resp 16 05/06/18 08:35 BP 117/77 05/06/18 08:35 Pulse Ox 96 05/06/18 08:35 Intake & Output 05/05/18 05/06/18 05/06/18 18:59 06:59 18:59 Intake Total 0 Balance 0 Intake: Oral 0 Other: # Voids 1 # Bowel Movements 1 1 - Exam Physical exam 37-year-old female up in room reports continues to have left lower quadrant pain has improved Lungs adequate air movement bilaterally no shortness of breath noted Heart S1-S2 audible regular Abdomen obese soft with mild tenderness to the left lower quadrant not distended no nausea no vomiting tolerating ice chips states urinating no difficulty several loose watery stools last evening stated noted increased cramping Extremities no edema - Labs CBC & Chem 7: 05/06/18 07:46 05/06/18 07:46 Labs: Abnormal Lab Results - Last 24 Hours (Table) 05/06/18 05/06/18 Range/Units 07:46 07:46 WBC 15.0 H (3.8-10.6) k/uL Neutrophils # 13.1 H (1.3-7.7) k/uL Potassium 3.3 L (3.5-5.1) mmol/L Carbon Dioxide 21 L (22-30) mmol/L Microbiology - Last 24 Hours (Table) 05/04/18 15:46 Blood Culture - Preliminary Blood No Growth after 24 hours 05/04/18 11:18 Urine Culture - Final Urine,Voided Assessment and Plan Assessment: Impression Present on admission severe left lower quadrant abdominal pain suspect due to diverticulitis with microperforation Electrolyte abnormality hypokalemia Present on admission leukocytosis febrile suspect due to diverticulitis Plan Await recommendations by infectious disease Dr. Puente Continue IV Zosyn and Flagyl as ordered Pain control Potassium to be replaced DVT and GI prophylaxis Repeat labs in the morning Clear liquid diet Further surgical recommendations pending clinical course Will follow with you The above impression and plan of care have been discussed and directed by signing physician. Farhana Garcia nurse practitioner acting as scribe for signing physician.
[2018-05-06] MEDS: POTASSIUM CHLORIDE ER 20 MEQ TAB.ER PO SCH ×2 (11:57→13:38)
[2018-05-06] MEDS ORDERED: traMADol 50 MG TAB PO PRN (11:57)
[2018-05-06] MEDS: 0.9% NACL WITH KCL 20 MEQ/L 1,000 ML IV SCH ×2 (11:57→21:12)
[2018-05-06] MEDS ORDERED: HYDROcodone/APAP 5-325MG 1 EACH TAB PO PRN (11:58)
--- NOTE | 2018-05-06 12:48 | P.PN ---
Subjective Progress Note Date: 05/06/18 This is a 37-year-old female patient of Dr. Thomson. Patient presents to emergency room with complaints of increasing abdominal pain. Patient states she was seen by her PCP 2 days ago and was diagnosed with urinary tract infection and was started on Bactrim. Patient states that over the past 2 days suprapubic pain has become significantly worse. Patient does report that she is on her menstrual cycle but her pain is significantly worse than She normally experiences. Patient does state she had a fever of 101 yesterday. Patient's medical history includes PCOS and essential hypertension Transvaginal ultrasound completed showing cervical nabothian cyst and a small amount of nonspecific fluid within the endocervical canal. No pelvic free fluid seen. CT of abdomen and pelvis completed showing acute diverticulitis centered at the mid sigmoid complicated by perforation. Air tracks up 13.7 cm on the peritoneum. There is no abscess. Secondary mild small bowel ileus. Hepatomegaly with hepatic steatosis. Also, small hiatal hernia. WBC 28.3. Dr. Woodall tilted for surgical services. Lactic acid have been ordered. Dr. Myers consulted for infectious disease. Patient started on Flagyl and Zosyn. Blood culture will be ordered . This time patient is been lower abdominal pain. Patient denies chest pain. Patient denies nausea vomiting or diarrhea. Patient denies urinary burning or frequency On 05/05/2018 patient is currently resting comfortably in bed. Patient states she is having some episodes of stools. Per surgical services waiting on surgical event intervention at this point. We'll continue to watch patient and administer IV antibiotics. Patient had temperature of 101.6. Lactic acid 1.6. At that time patient denies chest pain or shortness breath. Patient denies nausea vomiting. Patient denies any urinary burning or frequency. On 05/06/2018 patient is currently resting comfortably in bed. Patient does reports she is still having multiple loose stools. Patient remains on IV antibiotics per infectious disease recommendation. Patient has been nothing by mouth. Right has been advanced to clear liquids per surgical team. Patient has not had fever since 05/04. At this time patient denies chest pain or shortness breath. Patient denies nausea vomiting or diarrhea. Patient denies any urinary symptoms. White blood cell trending down to 15.0 Objective - Vital Signs Vital signs: Vital Signs Temp 98.1 F 05/06/18 08:35 Pulse 72 05/06/18 08:35 Resp 16 05/06/18 08:35 BP 117/77 05/06/18 08:35 Pulse Ox 96 05/06/18 08:35 Intake & Output 05/05/18 05/06/18 05/06/18 18:59 06:59 18:59 Intake Total 0 Balance 0 Intake: Oral 0 Other: # Voids 1 # Bowel Movements 1 1 - Exam Head normocephalic Neck supple Lungs clear to auscultation bilaterally no wheezing or crackles Heart regular rate and rhythm S1-S2, no rub or gallop Abdomen is soft nontender nondistended positive bowel sounds no hepatosplenomegaly Extremities no edema Neuro alert and orientated to 3 - Labs CBC & Chem 7: 05/06/18 07:46 05/06/18 07:46 Labs: Abnormal Lab Results - Last 24 Hours (Table) 05/06/18 05/06/18 Range/Units 07:46 07:46 WBC 15.0 H (3.8-10.6) k/uL Neutrophils # 13.1 H (1.3-7.7) k/uL Potassium 3.3 L (3.5-5.1) mmol/L Carbon Dioxide 21 L (22-30) mmol/L Microbiology - Last 24 Hours (Table) 05/04/18 15:46 Blood Culture - Preliminary Blood No Growth after 24 hours 05/04/18 11:18 Urine Culture - Final Urine,Voided Assessment and Plan Assessment: 1. Abdominal pain related to diverticulitis with perforation. CT of abdomen completed showing acute diverticulitis centered at the mid sigmoid completed by perforation. with Air tracking. A secondary mild small bowel ileus. Hepatomegaly with hepatic steatosis. Also small hiatal hernia. Transvaginal ultrasound completed showing cervical nobothian system is normal and nonspecific fluid within the endocervical canal. Dr. Woodall consulted for sugical consult. Per surgical services patient will be made nothing by mouth and IV antibiotics. She will be watched carefully at this time if her condition changes she may require urgent exploratory lap with possible colostomy per surgical services. Per surgical services patient has been advanced to clear liquid diet. 2. Leukocytosis. White blood cell 28.3. Lactic acid has been ordered. Urine and blood cultures ordered. Dr. Puente been consulted for infectious disease. Patient currently on Zosyn and Flagyl for antibiotics. Patient does reports she had fever of 101 at home. Lactic acid 1.6. The blood cell trending down to 15.0. Patient remains on Flagyl and Zosyn. Infectious disease following. C. diff negative 3. History of essential hypertension. Home medications resumed 4. History of PCOS. Patient states she takes metformin for her PCOS. Currently on hold. 5. Hypokalemia. Potassium 2.8. Replace per protocol. Repeat potassium 3.3. Replacement protocol DVT prophylaxis [facility]. Prophylaxis Protonix I performed an examination of the patient and discussed their management with the Nurse Practitioner. I have reviewed the Nurse Practitioner's notes and agree with the documented findings and plan of care
--- NOTE | 2018-05-06 14:39 | CDI ---
Last Revision, June 2017 Documentation Clarification Form Date: 05/06/2018 2:08:59 PM From: Silvia Swanson RN, CCDS Admit Date: 05/04/2018 1:49:00 PM Patient Name: Deysi Sifuentes Visit Number: [id number] Discharge Date: ATTENTION: The Clinical Documentation Specialists (CDI) and [facility] Coding Staff appreciate your assistance in clarifying documentation. Please respond to the clarification below the line at the bottom and electronically sign. The CDI & [facility] Coding staff will review the response and follow-up if needed. Please note: Queries are made part of the Legal Health Record. If you have any questions, please contact the author of this message via ITS. Milton Kong MD Documentation in your consult states: "patient admitted to the hospital with abdominal pain fever and elevated white count" History/Risk Factors: Urinary tract infection outpatient treatment with Bactrim , Hypertension Clinical Indicators: Present with abdominal brain CT abdomen notes acute sigmoid diverticulitis with perforation, but no drainable abscess. WBC/Left Shift 28.3, 21.3, 15.0 Lactic acid: 1.6 Blood cultures: Pending Vitals signs on admission: 112/66 96 20 98.9, 111/74 99 18 101.6 Other Clinical Indicators: Prior treatment for UTI with Bactrim outpatient Treatment: ID Consult: Yes Antibiotics: Flagyl IV, Zosyn IV NPO IV Fluids In your professional opinion, please clarify if these findings signify one of the following conditions, whether the condition is POA, and cause, if known: Condition Sepsis ruled out SIRS, without underlying infectious process Sepsis Ruled in Other, please specify Unable to determine Present on Admission: Yes No Identify the (suspected) organism Link or clarify if there is associated (due to/with): Organ failure Shock SIRS Criteria..2 or more of the following may indicate SIRS: Temperature < 96.8F (36C) or > 101.0F (38.3C) Heart Rate > 90 bpm Respiratory Rate > 20 breaths/min or PaCO2 < 32 mmHg White Blood Cell Count > 12,000 or < 4,000 cells/mm3 or > 10% bands Lactate >2.0 mmol/L (>4.0 is equivalent to septic shock) Please continue to document in your progress notes and discharge summary in order to capture severity of illness and risk of mortality. Include clinical findings that support your diagnosis. Sepsis present on admission documented in the initial consult MTDD
[2018-05-07] MEDS: PIPERACILLIN-TAZOBACTAM 3.375 GM in DEXTROSE/WATER 1 50ML.BAG IVPB SCH ×3 (04:52→20:29)
[2018-05-07] MEDS: 0.9% NACL WITH KCL 20 MEQ/L 1,000 ML IV SCH ×3 (04:54→23:35)
[2018-05-07 05:47] LABS: Basophils % (A) 0 %; Eosinophils # (A) 0.3 k/uL (0-0.7); Eosinophils % (A) 3 %; HGB 12.2 gm/dL (11.4-16.0); Lymphocytes # (A) 1.3 k/uL (1.0-4.8); Lymphocytes % (A) 13 %; MCH 28.2 pg (25.0-35.0); MCHC 33.8 g/dL (31.0-37.0); MCV 83.5 fL (80.0-100.0); Mean Platelet Volume 6.7; Monocytes # (A) 0.5 k/uL (0-1.0); Monocytes % (A) 5 %; Neutrophils # (A) 7.9 k/uL (1.3-7.7); Neutrophils % (A) 78 %; Platelet Count 411 k/uL (150-450); RBC 4.32 m/uL (3.80-5.40); RDW 14.8 % (11.5-15.5); WBC 10.1 k/uL (3.8-10.6)
[2018-05-07 06:19] LABS: ALT 28 U/L (9-52); AST 23 U/L (14-36); Alkaline Phosphatase 63 U/L (38-126); Anion Gap 9 mmol/L; Blood Urea Nitrogen 8 mg/dL (7-17); Calcium 8.1 mg/dL (8.4-10.2); Carbon Dioxide 26 mmol/L (22-30); Chloride 101 mmol/L (98-107); Glucose 94 mg/dL (74-99); Magnesium 2.1 mg/dL (1.6-2.3); Potassium 3.2 mmol/L (3.5-5.1); Sodium 136 mmol/L (137-145); Total Bilirubin 0.6 mg/dL (0.2-1.3); Total Protein 6.3 g/dL (6.3-8.2)
--- NOTE | 2018-05-07 07:35 | PN ---
PROGRESS NOTE DATE OF SERVICE: 05/06/2018. REASON FOR FOLLOWUP: Acute diverticulitis with perforation. INTERVAL HISTORY: The patient is currently afebrile. She is more awake and alert. She is breathing comfortably. The left lower abdominal pain is currently improved and covered with pain medication. Denies any chest pain, shortness of breath, cough, started on a clear liquid diet, she has been tolerating with no nausea or vomiting. Did have loose stools though. PHYSICAL EXAMINATION: Her blood pressure is 109/71 with a pulse of 82, temperature 98.5. She is 98% on room air. General description is a middle aged female lying in bed in no distress. Respiratory system unlabored breathing, clear to auscultation anteriorly. Heart S1, S2. Regular rate and rhythm. ABDOMEN: Soft, minimally tender left lower quadrant area. No guarding or rigidity. EXTREMITIES: No edema of the feet. LABS: Hemoglobin is 12.8, white count 15.1 with a BUN of 11, creatinine 0.68. Blood cultures have been negative so far. DIAGNOSTIC IMPRESSION AND PLAN: Patient admitted to the hospital with sepsis in patient who did have a fever of 101 degrees Fahrenheit, did have elevated white count. Tachycardia. Source is acute sigmoid diverticulitis with perforation, but no drainable abscess. The patient will continue with Zosyn and Flagyl while waiting for the clinical condition to stabilize and improve before transition to oral antibiotics. Continue supportive care. MMODL / IJN: [id number] /
[2018-05-07] MEDS: PANTOPRAZOLE 40 MG/10 ML VIAL IV SCH (09:05)
[2018-05-07] MEDS: CHLORTHALIDONE 25 MG TAB PO SCH ×2 (09:06→20:29)
[2018-05-07] MEDS: ATENOLOL 25 MG TAB PO SCH ×2 (09:06→20:29)
[2018-05-07] MEDS: metroNIDAZOLE-NS PMX 500 MG in SALINE 1 100ML.BAG IVPB SCH ×3 (09:06→23:35)
--- NOTE | 2018-05-07 12:23 | P.PN ---
Subjective Progress Note Date: 05/07/18 Principal diagnosis: Diverticulitis Patient doing well today. Pain is improving. Multiple loose stools. She is afebrile. White blood cell count 10.1. Tolerating clears. Objective - Vital Signs Vital signs: Vital Signs Temp 97.5 F L 05/07/18 08:52 Pulse 78 05/07/18 08:52 Resp 18 05/07/18 08:52 BP 118/82 05/07/18 08:52 Pulse Ox 95 05/06/18 23:50 Intake & Output 05/06/18 05/07/18 05/07/18 18:59 06:59 18:59 Intake Total 100 Balance 100 Intake: Oral 100 Other: # Voids 1 - Exam Abdomen: Soft, mild lower quadrant tenderness, no rebound or guarding - Labs CBC & Chem 7: 05/07/18 05:32 05/07/18 05:32 Labs: Abnormal Lab Results - Last 24 Hours (Table) 05/07/18 05/07/18 Range/Units 05:32 05:32 Neutrophils # 7.9 H (1.3-7.7) k/uL Sodium 136 L (137-145) mmol/L Potassium 3.2 L (3.5-5.1) mmol/L Calcium 8.1 L (8.4-10.2) mg/dL Albumin 3.0 L (3.5-5.0) g/dL Microbiology - Last 24 Hours (Table) 05/04/18 15:46 Blood Culture - Preliminary Blood No Growth after 48 hours Assessment and Plan (1) Diverticulitis of large intestine with complication Narrative/Plan: Advance diet to full liquids tomorrow. Increase ambulation. Continue antibiotics per infectious disease. Current Visit: Yes Status: Acute Code(s): K57.32 - DVTRCLI OF LG INT W/O PERFORATION OR ABSCESS W/O BLEEDING SNOMED Code(s): 883903542
[2018-05-07] MEDS ORDERED: Potassium Replacement Protocol 1 EACH MISC MISCELLANE PRN (15:25)
--- NOTE | 2018-05-07 15:32 | P.PN ---
Subjective Progress Note Date: 05/07/18 This is a 37-year-old female patient of Dr. Thomson. Patient presents to emergency room with complaints of increasing abdominal pain. Patient states she was seen by her PCP 2 days ago and was diagnosed with urinary tract infection and was started on Bactrim. Patient states that over the past 2 days suprapubic pain has become significantly worse. Patient does report that she is on her menstrual cycle but her pain is significantly worse than She normally experiences. Patient does state she had a fever of 101 yesterday. Patient's medical history includes PCOS and essential hypertension Transvaginal ultrasound completed showing cervical nabothian cyst and a small amount of nonspecific fluid within the endocervical canal. No pelvic free fluid seen. CT of abdomen and pelvis completed showing acute diverticulitis centered at the mid sigmoid complicated by perforation. Air tracks up 13.7 cm on the peritoneum. There is no abscess. Secondary mild small bowel ileus. Hepatomegaly with hepatic steatosis. Also, small hiatal hernia. WBC 28.3. Dr. Woodall tilted for surgical services. Lactic acid have been ordered. Dr. Myers consulted for infectious disease. Patient started on Flagyl and Zosyn. Blood culture will be ordered . This time patient is been lower abdominal pain. Patient denies chest pain. Patient denies nausea vomiting or diarrhea. Patient denies urinary burning or frequency On 05/05/2018 patient is currently resting comfortably in bed. Patient states she is having some episodes of stools. Per surgical services waiting on surgical event intervention at this point. We'll continue to watch patient and administer IV antibiotics. Patient had temperature of 101.6. Lactic acid 1.6. At that time patient denies chest pain or shortness breath. Patient denies nausea vomiting. Patient denies any urinary burning or frequency. On 05/06/2018 patient is currently resting comfortably in bed. Patient does reports she is still having multiple loose stools. Patient remains on IV antibiotics per infectious disease recommendation. Patient has been nothing by mouth. Right has been advanced to clear liquids per surgical team. Patient has not had fever since 05/04. At this time patient denies chest pain or shortness breath. Patient denies nausea vomiting or diarrhea. Patient denies any urinary symptoms. White blood cell trending down to 15.0 On 05/07/2018 patient is alert and oriented 3 she is having some pain in the left lower quadrant otherwise she denies any complaints she is still having multiple watery bowel movements otherwise there is no fever or chills no headache or dizziness no chest pain no shortness of breath no cough no nausea or vomiting no blood in the stool and no urinary symptoms. She is tolerating clear liquid diet well today she will be upgraded to full liquid diet tomorrow Objective - Vital Signs Vital signs: Vital Signs Temp 97.5 F L 05/07/18 08:52 Pulse 78 05/07/18 08:52 Resp 18 05/07/18 08:52 BP 118/82 05/07/18 08:52 Pulse Ox 95 05/06/18 23:50 Intake & Output 05/06/18 05/07/18 05/07/18 18:59 06:59 18:59 Intake Total 100 360 Balance 100 360 Intake: Oral 100 360 Other: # Voids 1 3 # Bowel Movements 5 - Exam Head normocephalic and atraumatic Neck supple no JVD no goiter no lymphadenopathy Lungs clear to auscultation bilaterally no wheezing or crackles Heart regular rate and rhythm S1-S2, no rub or gallop Abdomen is soft nontender nondistended positive bowel sounds no hepatosplenomegaly Extremities no edema no cyanosis or clubbing Neuro alert and orientated to 3 - Labs CBC & Chem 7: 05/07/18 05:32 05/07/18 05:32 Labs: Abnormal Lab Results - Last 24 Hours (Table) 05/07/18 05/07/18 Range/Units 05:32 05:32 Neutrophils # 7.9 H (1.3-7.7) k/uL Sodium 136 L (137-145) mmol/L Potassium 3.2 L (3.5-5.1) mmol/L Calcium 8.1 L (8.4-10.2) mg/dL Albumin 3.0 L (3.5-5.0) g/dL Microbiology - Last 24 Hours (Table) 05/04/18 15:46 Blood Culture - Preliminary Blood No Growth after 48 hours Assessment and Plan Plan: 1. Abdominal pain related to diverticulitis with perforation. CT of abdomen completed showing acute diverticulitis centered at the mid sigmoid completed by perforation. with Air tracking. A secondary mild small bowel ileus. Hepatomegaly with hepatic steatosis. Also small hiatal hernia. Transvaginal ultrasound completed showing cervical nobothian system is normal and nonspecific fluid within the endocervical canal. Dr. Woodall consulted for sugical consult. Per surgical services patient will be made nothing by mouth and IV antibiotics. She will be watched carefully at this time if her condition changes she may require urgent exploratory lap with possible colostomy per surgical services. Per surgical services patient has been advanced to clear liquid diet. 2. Leukocytosis. White blood cell 28.3. Lactic acid has been ordered. Urine and blood cultures ordered. Dr. Puente been consulted for infectious disease. Patient currently on Zosyn and Flagyl for antibiotics. Patient does reports she had fever of 101 at home. Lactic acid 1.6. The blood cell trending down to 15.0. Patient remains on Flagyl and Zosyn. Infectious disease following. C. diff negative 3. History of essential hypertension. Home medications resumed 4. History of PCOS. Patient states she takes metformin for her PCOS. Currently on hold. 5. Hypokalemia. Potassium 3.2. Replace per protocol.
[2018-05-07] MEDS: POTASSIUM CHLORIDE ER 20 MEQ TAB.ER PO SCH ×2 (15:49→17:05)
[2018-05-08] MEDS: PIPERACILLIN-TAZOBACTAM 3.375 GM in DEXTROSE/WATER 1 50ML.BAG IVPB SCH ×3 (05:17→20:23)
[2018-05-08 06:41] LABS: Basophils # (A) 0.1 k/uL (0-0.2); Basophils % (A) 1 %; Eosinophils # (A) 0.2 k/uL (0-0.7); Eosinophils % (A) 2 %; HCT 35.4 % (34.0-46.0); HGB 11.6 gm/dL (11.4-16.0); Lymphocytes # (A) 1.5 k/uL (1.0-4.8); Lymphocytes % (A) 16 %; MCH 27.4 pg (25.0-35.0); MCHC 32.7 g/dL (31.0-37.0); MCV 83.8 fL (80.0-100.0); Mean Platelet Volume 6.5; Monocytes # (A) 0.6 k/uL (0-1.0); Monocytes % (A) 6 %; Neutrophils # (A) 6.7 k/uL (1.3-7.7); Neutrophils % (A) 71 %; Platelet Count 453 k/uL (150-450); RBC 4.22 m/uL (3.80-5.40); RDW 14.9 % (11.5-15.5); WBC 9.4 k/uL (3.8-10.6)
[2018-05-08 06:53] LABS: ALT 37 U/L (9-52); AST 22 U/L (14-36); Alkaline Phosphatase 59 U/L (38-126); Anion Gap 9 mmol/L; Blood Urea Nitrogen 7 mg/dL (7-17); Calcium 8.4 mg/dL (8.4-10.2); Carbon Dioxide 25 mmol/L (22-30); Chloride 103 mmol/L (98-107); Glucose 104 mg/dL (74-99); Potassium 3.3 mmol/L (3.5-5.1); Sodium 137 mmol/L (137-145); Total Bilirubin 0.4 mg/dL (0.2-1.3); Total Protein 6.3 g/dL (6.3-8.2)
[2018-05-08] MEDS: 0.9% NACL WITH KCL 20 MEQ/L 1,000 ML IV SCH ×3 (07:42→23:52)
[2018-05-08] MEDS: metroNIDAZOLE-NS PMX 500 MG in SALINE 1 100ML.BAG IVPB SCH ×3 (08:06→23:52)
[2018-05-08] MEDS: PANTOPRAZOLE 40 MG/10 ML VIAL IV SCH (09:24)
[2018-05-08] MEDS: ATENOLOL 25 MG TAB PO SCH ×2 (09:26→20:23)
[2018-05-08] MEDS: CHLORTHALIDONE 25 MG TAB PO SCH ×2 (09:26→20:22)
[2018-05-08] MEDS ORDERED: Potassium Replacement Protocol 1 EACH MISC MISCELLANE PRN (09:50)
--- NOTE | 2018-05-08 10:09 | P.PN ---
Subjective Progress Note Date: 05/08/18 This is a 37-year-old female patient of Dr. Thomson. Patient presents to emergency room with complaints of increasing abdominal pain. Patient states she was seen by her PCP 2 days ago and was diagnosed with urinary tract infection and was started on Bactrim. Patient states that over the past 2 days suprapubic pain has become significantly worse. Patient does report that she is on her menstrual cycle but her pain is significantly worse than She normally experiences. Patient does state she had a fever of 101 yesterday. Patient's medical history includes PCOS and essential hypertension Transvaginal ultrasound completed showing cervical nabothian cyst and a small amount of nonspecific fluid within the endocervical canal. No pelvic free fluid seen. CT of abdomen and pelvis completed showing acute diverticulitis centered at the mid sigmoid complicated by perforation. Air tracks up 13.7 cm on the peritoneum. There is no abscess. Secondary mild small bowel ileus. Hepatomegaly with hepatic steatosis. Also, small hiatal hernia. WBC 28.3. Dr. Woodall tilted for surgical services. Lactic acid have been ordered. Dr. Myers consulted for infectious disease. Patient started on Flagyl and Zosyn. Blood culture will be ordered . This time patient is been lower abdominal pain. Patient denies chest pain. Patient denies nausea vomiting or diarrhea. Patient denies urinary burning or frequency On 05/05/2018 patient is currently resting comfortably in bed. Patient states she is having some episodes of stools. Per surgical services waiting on surgical event intervention at this point. We'll continue to watch patient and administer IV antibiotics. Patient had temperature of 101.6. Lactic acid 1.6. At that time patient denies chest pain or shortness breath. Patient denies nausea vomiting. Patient denies any urinary burning or frequency. On 05/06/2018 patient is currently resting comfortably in bed. Patient does reports she is still having multiple loose stools. Patient remains on IV antibiotics per infectious disease recommendation. Patient has been nothing by mouth. Right has been advanced to clear liquids per surgical team. Patient has not had fever since 05/04. At this time patient denies chest pain or shortness breath. Patient denies nausea vomiting or diarrhea. Patient denies any urinary symptoms. White blood cell trending down to 15.0 On 05/07/2018 patient is alert and oriented 3 she is having some pain in the left lower quadrant otherwise she denies any complaints she is still having multiple watery bowel movements otherwise there is no fever or chills no headache or dizziness no chest pain no shortness of breath no cough no nausea or vomiting no blood in the stool and no urinary symptoms. She is tolerating clear liquid diet well today she will be upgraded to full liquid diet tomorrow On 05/08/2018 patient is alert and oriented 3. Patient has been tolerating full liquid diet. Patient states she had one episode of left lower quadrant pain that was about 10 minutes approximately this morning. At this time patient denies fever chills. Patient denies nausea vomiting. Patient states diarrhea has significantly improved. She remains on Flagyl and Zosyn for antibiotics. Patient denies chest pain or shortness of breath. Patient denies any urinary symptoms Objective - Vital Signs Vital signs: Vital Signs Temp 97.7 F 05/08/18 08:10 Pulse 77 05/08/18 08:10 Resp 16 05/08/18 08:10 BP 117/82 05/08/18 08:10 Pulse Ox 94 L 05/08/18 08:10 Intake & Output 05/07/18 05/08/18 05/08/18 18:59 06:59 18:59 Intake Total 360 Balance 360 Intake: Oral 360 Other: # Voids 3 1 # Bowel Movements 5 - Exam Head normocephalic Neck supple Lungs clear to auscultation bilaterally no wheezing or crackles Heart regular rate and rhythm S1-S2, no rub or gallop Abdomen is soft nontender nondistended positive bowel sounds no hepatosplenomegaly Extremities no edema Neuro alert and orientated to 3 - Labs CBC & Chem 7: 05/08/18 06:12 05/08/18 06:12 Labs: Abnormal Lab Results - Last 24 Hours (Table) 05/08/18 05/08/18 Range/Units 06:12 06:12 Plt Count 453 H (150-450) k/uL Potassium 3.3 L (3.5-5.1) mmol/L Glucose 104 H (74-99) mg/dL Albumin 3.0 L (3.5-5.0) g/dL Microbiology - Last 24 Hours (Table) 05/04/18 15:46 Blood Culture - Preliminary Blood No Growth after 72 hours Assessment and Plan Assessment: 1. Abdominal pain related to diverticulitis with perforation. CT of abdomen completed showing acute diverticulitis centered at the mid sigmoid completed by perforation. with Air tracking. A secondary mild small bowel ileus. Hepatomegaly with hepatic steatosis. Also small hiatal hernia. Transvaginal ultrasound completed showing cervical nobothian system is normal and nonspecific fluid within the endocervical canal. Dr. Woodall consulted for sugical consult. Per surgical services patient will be made nothing by mouth and IV antibiotics. She will be watched carefully at this time if her condition changes she may require urgent exploratory lap with possible colostomy per surgical services. Per surgical services patient has been advanced to clear liquid diet. 2. Leukocytosis. White blood cell 28.3. Lactic acid has been ordered. Urine and blood cultures ordered. Dr. Puente been consulted for infectious disease. Patient currently on Zosyn and Flagyl for antibiotics. Patient does reports she had fever of 101 at home. Lactic acid 1.6. The blood cell trending down to 15.0. Patient remains on Flagyl and Zosyn. Infectious disease following. C. diff negative. White blood cell improving to 9.4 3. History of essential hypertension. Home medications resumed 4. History of PCOS. Patient states she takes metformin for her PCOS. Currently on hold. 5. Hypokalemia. Potassium 2.8. Replace per protocol. Repeat potassium 3.3. Replacement protocol. Patient declining IV potassium replacement. Will order oral replacement protocol DVT prophylaxis SCDs hospital surgical intervention. Prophylaxis Protonix I performed an examination of the patient and discussed their management with the Nurse Practitioner. I have reviewed the Nurse Practitioner's notes and agree with the documented findings and plan of care
[2018-05-08] MEDS: POTASSIUM CHLORIDE ER 20 MEQ TAB.ER PO SCH ×2 (10:11→11:22)
--- NOTE | 2018-05-08 10:55 | P.PN ---
Subjective Progress Note Date: 05/08/18 Principal diagnosis: Diverticulitis Patient doing about the same today still with mild intermittent abdominal cramps. Tolerating full liquids for breakfast. T-max 99.1. White blood cell count 9.4. No stools since yesterday. Objective - Vital Signs Vital signs: Vital Signs Temp 97.7 F 05/08/18 08:10 Pulse 77 05/08/18 08:10 Resp 16 05/08/18 08:10 BP 117/82 05/08/18 08:10 Pulse Ox 94 L 05/08/18 08:10 Intake & Output 05/07/18 05/08/18 05/08/18 18:59 06:59 18:59 Intake Total 360 Balance 360 Intake: Oral 360 Other: # Voids 3 1 # Bowel Movements 5 - Exam Abdomen: Soft, nondistended, minimal lower abdominal tenderness - Labs CBC & Chem 7: 05/08/18 06:12 05/08/18 06:12 Labs: Abnormal Lab Results - Last 24 Hours (Table) 05/08/18 05/08/18 Range/Units 06:12 06:12 Plt Count 453 H (150-450) k/uL Potassium 3.3 L (3.5-5.1) mmol/L Glucose 104 H (74-99) mg/dL Albumin 3.0 L (3.5-5.0) g/dL Microbiology - Last 24 Hours (Table) 05/04/18 15:46 Blood Culture - Preliminary Blood No Growth after 72 hours Assessment and Plan (1) Diverticulitis of large intestine with complication Narrative/Plan: Start low fiber diet tomorrow. Continue IV antibiotics. Ambulate. Anticipate discharge tomorrow. Current Visit: Yes Status: Acute Code(s): K57.32 - DVTRCLI OF LG INT W/O PERFORATION OR ABSCESS W/O BLEEDING SNOMED Code(s): 732176652
[2018-05-08] MEDS ORDERED: POTASSIUM CHLORIDE ER 20 MEQ TAB.ER PO STA (14:08)
--- NOTE | 2018-05-08 22:57 | PN ---
PROGRESS NOTE DATE OF SERVICE: 05/08/2018. REASON FOR FOLLOW UP: Acute sigmoid diverticulitis with bowel perforation. INTERVAL HISTORY: The patient is currently afebrile. She is feeling better, breathing comfortably. Her abdominal pain has currently improved. She has been started on full liquid diet and she has been tolerating so far. No nausea, vomiting and no diarrhea. EXAMINATION: Blood pressure 129/79 with a pulse of 72, temperature 98.2, she is 100% on room air. GENERAL DESCRIPTION: A middle-aged female up in the room in no distress. RESPIRATORY SYSTEM: Unlabored breathing. Clear to auscultation anteriorly. HEART: S1, S2. Regular rate. ABDOMEN: Soft, no tenderness. No guarding or rigidity. LABS: Hemoglobin 11.7, white count 9.4, BUN of 7, creatinine 0.69. Culture has been negative so far. DIAGNOSTIC IMPRESSION AND PLAN: Patient with acute sigmoid diverticulitis with a mild perforation but no drainable abscess. Patient has done very well on Zosyn and Flagyl. Oral intake has improved. May be transitioned to oral antibiotic to finish a course of therapy. Continue supportive care. MMODL / IJN: [id number] /
[2018-05-09] MEDS: PIPERACILLIN-TAZOBACTAM 3.375 GM in DEXTROSE/WATER 1 50ML.BAG IVPB SCH (05:03)
[2018-05-09] MEDS: 0.9% NACL WITH KCL 20 MEQ/L 1,000 ML IV SCH (05:04)
[2018-05-09] MEDS: PANTOPRAZOLE 40 MG/10 ML VIAL IV SCH (08:32)
[2018-05-09] MEDS: CHLORTHALIDONE 25 MG TAB PO SCH (08:32)
[2018-05-09] MEDS: ATENOLOL 25 MG TAB PO SCH (08:32)
[2018-05-09] MEDS ORDERED: ENOXAPARIN 40 MG/0.4 ML SYRINGE SQ SCH (09:00)
[2018-05-09] MEDS: metroNIDAZOLE-NS PMX 500 MG in SALINE 1 100ML.BAG IVPB SCH (10:12)
[2018-05-09 11:34] LABS: ALT 27 U/L (9-52); AST 27 U/L (14-36); Albumin 3.3 g/dL (3.5-5.0); Alkaline Phosphatase 50 U/L (38-126); Anion Gap 11 mmol/L; Blood Urea Nitrogen 8 mg/dL (7-17); Calcium 8.8 mg/dL (8.4-10.2); Carbon Dioxide 25 mmol/L (22-30); Chloride 103 mmol/L (98-107); Glucose 131 mg/dL (74-99); Potassium 4.1 mmol/L (3.5-5.1); Sodium 139 mmol/L (137-145); Total Bilirubin 0.5 mg/dL (0.2-1.3)
--- NOTE | 2018-05-09 11:35 | P.PN ---
Subjective Progress Note Date: 05/09/18 This is a 37-year-old female patient of Dr. Thomson. Patient presents to emergency room with complaints of increasing abdominal pain. Patient states she was seen by her PCP 2 days ago and was diagnosed with urinary tract infection and was started on Bactrim. Patient states that over the past 2 days suprapubic pain has become significantly worse. Patient does report that she is on her menstrual cycle but her pain is significantly worse than She normally experiences. Patient does state she had a fever of 101 yesterday. Patient's medical history includes PCOS and essential hypertension Transvaginal ultrasound completed showing cervical nabothian cyst and a small amount of nonspecific fluid within the endocervical canal. No pelvic free fluid seen. CT of abdomen and pelvis completed showing acute diverticulitis centered at the mid sigmoid complicated by perforation. Air tracks up 13.7 cm on the peritoneum. There is no abscess. Secondary mild small bowel ileus. Hepatomegaly with hepatic steatosis. Also, small hiatal hernia. WBC 28.3. Dr. Woodall tilted for surgical services. Lactic acid have been ordered. Dr. Myers consulted for infectious disease. Patient started on Flagyl and Zosyn. Blood culture will be ordered . This time patient is been lower abdominal pain. Patient denies chest pain. Patient denies nausea vomiting or diarrhea. Patient denies urinary burning or frequency On 05/05/2018 patient is currently resting comfortably in bed. Patient states she is having some episodes of stools. Per surgical services waiting on surgical event intervention at this point. We'll continue to watch patient and administer IV antibiotics. Patient had temperature of 101.6. Lactic acid 1.6. At that time patient denies chest pain or shortness breath. Patient denies nausea vomiting. Patient denies any urinary burning or frequency. On 05/06/2018 patient is currently resting comfortably in bed. Patient does reports she is still having multiple loose stools. Patient remains on IV antibiotics per infectious disease recommendation. Patient has been nothing by mouth. Right has been advanced to clear liquids per surgical team. Patient has not had fever since 05/04. At this time patient denies chest pain or shortness breath. Patient denies nausea vomiting or diarrhea. Patient denies any urinary symptoms. White blood cell trending down to 15.0 On 05/07/2018 patient is alert and oriented 3 she is having some pain in the left lower quadrant otherwise she denies any complaints she is still having multiple watery bowel movements otherwise there is no fever or chills no headache or dizziness no chest pain no shortness of breath no cough no nausea or vomiting no blood in the stool and no urinary symptoms. She is tolerating clear liquid diet well today she will be upgraded to full liquid diet tomorrow On 05/08/2018 patient is alert and oriented 3. Patient has been tolerating full liquid diet. Patient states she had one episode of left lower quadrant pain that was about 10 minutes approximately this morning. At this time patient denies fever chills. Patient denies nausea vomiting. Patient states diarrhea has significantly improved. She remains on Flagyl and Zosyn for antibiotics. Patient denies chest pain or shortness of breath. Patient denies any urinary symptoms On 05/09/2018 patient is alert and oriented 3. Patient currently tolerating low fiber diet. Patient states pain has significantly decreased. Awaiting surgical recommendation for discharge. Per infectious disease patient may be transitioned to oral antibiotics Objective - Vital Signs Vital signs: Vital Signs Temp 98.2 F 05/09/18 07:55 Pulse 76 05/09/18 07:55 Resp 24 05/09/18 07:55 BP 151/83 05/09/18 07:55 Pulse Ox 98 05/09/18 07:55 Intake & Output 05/08/18 05/09/18 05/09/18 18:59 06:59 18:59 Intake Total 2220 Balance 2220 Intake: Oral 2220 Other: # Voids 1 # Bowel Movements 1 - Exam Head normocephalic Neck supple Lungs clear to auscultation bilaterally no wheezing or crackles Heart regular rate and rhythm S1-S2, no rub or gallop Abdomen is soft nontender nondistended positive bowel sounds no hepatosplenomegaly Extremities no edema Neuro alert and orientated to 3 - Labs CBC & Chem 7: 05/08/18 06:12 05/08/18 12:40 Labs: Microbiology - Last 24 Hours (Table) 05/04/18 15:46 Blood Culture - Preliminary Blood No Growth after 96 hours Assessment and Plan Assessment: 1. Abdominal pain related to diverticulitis with perforation. CT of abdomen completed showing acute diverticulitis centered at the mid sigmoid completed by perforation. with Air tracking. A secondary mild small bowel ileus. Hepatomegaly with hepatic steatosis. Also small hiatal hernia. Transvaginal ultrasound completed showing cervical nobothian system is normal and nonspecific fluid within the endocervical canal. Dr. Woodall consulted for sugical consult. Per surgical services patient will be made nothing by mouth and IV antibiotics. She will be watched carefully at this time if her condition changes she may require urgent exploratory lap with possible colostomy per surgical services. Per surgical services patient has been advanced to low fiber diet 2. Leukocytosis. White blood cell 28.3. Lactic acid has been ordered. Urine and blood cultures ordered. Dr. Puente been consulted for infectious disease. Patient currently on Zosyn and Flagyl for antibiotics. Patient does reports she had fever of 101 at home. Lactic acid 1.6. The blood cell trending down to 15.0. Patient remains on Flagyl and Zosyn. Infectious disease following. C. diff negative. White blood cell improving to 9.4. Per infectious disease patient may be transitioned to oral antibiotic to finish her course of therapy upon discharge. 3. History of essential hypertension. Home medications resumed 4. History of PCOS. Patient states she takes metformin for her PCOS. Currently on hold. 5. Hypokalemia. Potassium 2.8. Replace per protocol. Repeat potassium 3.3. Replacement protocol. Patient declining IV potassium replacement. Will order oral replacement protocol DVT prophylaxis [facility] hospital surgical intervention. Prophylaxis Protonix I performed an examination of the patient and discussed their management with the Nurse Practitioner. I have reviewed the Nurse Practitioner's notes and agree with the documented findings and plan of care
[2018-05-09 11:36] VITALS: BMI 38.9
[2018-05-09 11:39] LABS: Basophils # (A) 0.1 k/uL (0-0.2); Basophils % (A) 0 %; Eosinophils # (A) 0.2 k/uL (0-0.7); Eosinophils % (A) 2 %; HCT 38.6 % (34.0-46.0); HGB 12.6 gm/dL (11.4-16.0); Lymphocytes # (A) 1.5 k/uL (1.0-4.8); Lymphocytes % (A) 14 %; MCHC 32.7 g/dL (31.0-37.0); MCV 85.6 fL (80.0-100.0); Mean Platelet Volume 6.9; Monocytes # (A) 0.4 k/uL (0-1.0); Monocytes % (A) 3 %; Neutrophils # (A) 8.5 k/uL (1.3-7.7); Neutrophils % (A) 78 %; Platelet Count 570 k/uL (150-450); RBC 4.51 m/uL (3.80-5.40); RDW 14.8 % (11.5-15.5); WBC 10.8 k/uL (3.8-10.6)
--- NOTE | 2018-05-09 11:55 | P.DS ---
Providers Date of admission: 05/04/18 13:49 Expected date of discharge: 05/09/18 Attending physician: Santiago Woodall Consults: 05/04/18 13:13 Consult Physician Stat Consulting Provider: Santiago Woodall Consult Reason/Comments: complicated diverticulitis Do you want consulting provider notified?: Already Contacted 05/04/18 15:00 Consult Physician Routine Consulting Provider: Milton Puente Consult Reason/Comments: Leukocytosis and diverticulitis with perforation Do you want consulting provider notified?: Yes Primary care physician: Elena Thomson [facility] Course: 37-year-old female presented to the emergency room on the day of admission to be evaluated for persistent severe lower abdominal pain. Patient was worked up in the emergency room imaging showed evidence of diverticulitis with microperforation. Patient stated that she had pain left lower quadrant greater than the right. No prior episodes. No surgical history. Patient was started on IV antibiotics with infectious disease consultation requested diet full liquids as tolerated. white count on the was 9.4 temp maxed at 99 patient was having mild intermittent abdominal cramping. Is tolerating a diet with no nausea no vomiting dietitian did see patient provided patient with diverticulosis diet instructions. Patient stated she was anxious to be discharged. Was felt to be appropriate to be discharged home plain Tylenol was effective for pain control Impression discharge instructions Present on admission severe left lower quadrant abdominal pain suspect due to diverticulitis with microperforation Electrolyte abnormality hypokalemia corrected resolved Present on admission leukocytosis febrile suspect due to diverticulitis History of PCOS The above impression and plan of care have been discussed and directed by signing physician. Farhana Garcia nurse practitioner acting as scribe for signing physician. Patient Condition at Discharge: Fair Plan - Discharge Summary Discharge Rx Participant: Yes New Discharge Prescriptions: New Levofloxacin [Levaquin] 500 mg PO DAILY #7 tab Acetaminophen Tab [Tylenol] 650 mg PO Q4HR PRN tab PRN Reason: Fever and/ or Mild Pain metroNIDAZOLE [Flagyl] 500 mg PO TID #21 tab Continue Acetaminophen Tab [Tylenol] 1,000 mg PO Q6HR PRN PRN Reason: Pain Or Fever > 100.5 Potassium Gluconate 99 mg PO W/SUPPER metFORMIN HCL [metFORMIN HCL ER] 750 mg PO W/SUPPER Atenolol/Chlorthalidone [Atenolol-Chlorthalidone 50-25] 0.5 tab PO BID Discontinued Sulfamethox-Tmp 800-160Mg [Bactrim DS 800-160 mg] 1 tab PO Q12HR Discharge Medication List Acetaminophen Tab [Tylenol] 1,000 mg PO Q6HR PRN 05/04/18 [History] Atenolol/Chlorthalidone [Atenolol-Chlorthalidone 50-25] 0.5 tab PO BID 05/04/18 [History] Potassium Gluconate 99 mg PO W/SUPPER 05/04/18 [History] metFORMIN HCL [metFORMIN HCL ER] 750 mg PO W/SUPPER 05/04/18 [History] Acetaminophen Tab [Tylenol] 650 mg PO Q4HR PRN tab 05/09/18 [Rx] Levofloxacin [Levaquin] 500 mg PO DAILY #7 tab 05/09/18 [Rx] metroNIDAZOLE [Flagyl] 500 mg PO TID #21 tab 05/09/18 [Rx] Follow up Appointment(s)/Referral(s): Elena Thomson MD [Primary Care Provider] - 1-2 days Santiago Woodall MD [STAFF PHYSICIAN] - 05/12/18 Activity/Diet/Wound Care/Special Instructions: Low fiber diet Discharge Disposition: HOME SELF-CARE
[2018-05-09 12:03] VITALS: BP 109/67; PULSE 72; RESP 19; TEMP 97.6
--- NOTE | 2018-05-09 15:22 | PN ---
PROGRESS NOTE DATE OF SERVICE: 05/09/2018 REASON FOR FOLLOWUP: Perforated diverticulitis. INTERVAL HISTORY: The patient is afebrile. She was seen on rounds this morning. The patient has been feeling better. Abdominal pain has resolved. The patient denies any nausea, vomiting. She did have without any worsening abdominal pain and her diarrhea has slowed down. PHYSICAL EXAMINATION: Blood pressure is 139/67 with a pulse of 72, temperature 97.6. She is 94% on room air. General description is a middle-aged female, up in the bed, in no distress. RESPIRATORY SYSTEM: Unlabored breathing, clear to auscultation anteriorly. HEART: S1, S2. Regular rate and rhythm. ABDOMEN: Soft, no tenderness. LABS: Hemoglobin 12.6, white count of 10.8 with a BUN of 8, creatinine 0.67. DIAGNOSTIC IMPRESSION AND PLAN: Patient with sigmoid diverticulitis with perforation, but no drainable abscess. She did well on Zosyn and the Flagyl with no has been grown. Plan at this time is to finish therapy with oral Cipro, Flagyl for about 7-10 days with close outpatient followup. Plan of care discussed with the nurse taking care of the patient. Continue supportive care. MMODL / IJN: [id number] /
--- NOTE | 2018-05-16 12:23 | CDI ---
Last Revision, June 2017 Documentation Clarification Form Date: 05/16/2018 12:05:42 PM From: Silvia Swanson RN, CCDS Admit Date: 05/04/2018 1:49:00 PM Patient Name: Deysi Sifuentes Visit Number: [id number] Discharge Date: ATTENTION: The Clinical Documentation Specialists (CDI) and [facility] Coding Staff appreciate your assistance in clarifying documentation. Please respond to the clarification below the line at the bottom and electronically sign. The CDI & [facility] Coding staff will review the response and follow-up if needed. Please note: Queries are made part of the Legal Health Record. If you have any questions, please contact the author of this message via ITS. Santiago Lorenzana MD 05/06/18 Progress note: patient admitted to hospital with abdominal pain, fever and elevated white count, meeting criteria for sepsis present on admission. History/Risk Factors: UTI, Hypertension, Clinical Indicators: Present with acute sigmoid diverticulitis with perforation. WBC/Left Shift 28.3, 21.3, 15.0 Lactic acid: 1.6 CT Abdomen: Acute diverticulitis centered at the mid sigmoid complicated by perforation, Blood cultures: No Growth Vitals signs on admission: 112/66 96 20, 98.9, 111/74 99 148 101.6 Treatment: NPO ID Consult: Yes Antibiotics: Zosyn IV, Flagyl IV IV Fluids Monitor CBC, VS, Pain control, In your professional opinion, please clarify if these findings signify one of the following conditions, whether the condition is POA, and cause, if known: Condition Sepsis ruled in POA Sepsis ruled out Other, please specify Unable to determine Please continue to document in your progress notes and discharge summary in order to capture severity of illness and risk of mortality. Include clinical findings that support your diagnosis. MTDD
== END 2018-05-09 12:30 | disposition home or self-care (01) | DRG 872 ==
LOC: EC 10:23 → 6PED 13:49
PROVIDERS: ADMIT Surgery; ATTEND Surgery
DX: A41.9 Sepsis, unspecified organism (principal); K57.20 Diverticulitis of large intestine with perforation and abscess without bleeding; K56.7 Ileus, unspecified; N39.0 Urinary tract infection, site not specified; K76.0 Fatty (change of) liver, not elsewhere classified; E28.2 Polycystic ovarian syndrome; E87.6 Hypokalemia; I10 Essential (primary) hypertension; Z79.84 Long term (current) use of oral hypoglycemic drugs; Z79.899 Other long term (current) drug therapy; N88.8 Other specified noninflammatory disorders of cervix uteri; K44.9 Diaphragmatic hernia without obstruction or gangrene; N94.6 Dysmenorrhea, unspecified; E66.9 Obesity, unspecified; Z68.39 Body mass index [BMI] 39.0-39.9, adult; Z71.3 Dietary counseling and surveillance; Z82.5 Family history of asthma and other chronic lower respiratory diseases; Z82.49 Family history of ischemic heart disease and other diseases of the circulatory system; Z83.79 Family history of other diseases of the digestive system; Z83.49 Family history of other endocrine, nutritional and metabolic diseases
CPT/HCPCS: 36415; 74177; 76830; 80048; 80053; 81001; 81025; 83605; 83735; 84132; 85025; 87040; 87086; 87324; 96365; 99285

== ENCOUNTER → 2018-06-07 | Outpatient (CLI) | payer BC ==
[2018-06-07 11:32] LABS: HCT 39.6 % (34.0-46.0); HGB 13.3 gm/dL (11.4-16.0); MCH 28.1 pg (25.0-35.0); MCHC 33.7 g/dL (31.0-37.0); MCV 83.3 fL (80.0-100.0); Mean Platelet Volume 6.2; Platelet Count 436 k/uL (150-450); RBC 4.75 m/uL (3.80-5.40); RDW 14.7 % (11.5-15.5)
[2018-06-07 11:42] LABS: Potassium 3.7 mmol/L (3.5-5.1)
== END | disposition home or self-care (01) ==
LOC: LABPAT 10:22
PROVIDERS: ATTEND Surgery
DX: Z01.812 Encounter for preprocedural laboratory examination (principal); K57.92 Diverticulitis of intestine, part unspecified, without perforation or abscess without bleeding
CPT/HCPCS: 36415; 80051; 85027

== ENCOUNTER 2018-06-15 11:44 | Inpatient (IN) | payer BC ==
[2018-06-08 10:54] VITALS: BMI 37.0
[~2018-06-15 11:44] MED LIST: DEXAMETHASONE SOD PHOSPHATE 10 MG/ML 1 ML VIAL IV ONE; HEPARIN SODIUM,PORCINE 5,000 UNIT/ML 1 ML VIAL SQ ONE; HYDROmorphone 1 MG/ML 1 ML SYRINGE IVP PRN; MIDAZOLAM 2 MG/2 ML VIAL IV PRN; ONDANSETRON 4 MG/2 ML VIAL IVP ONE; SCOPOLAMINE 1.5MG/72HR PATCH TRANSDERM ONE; ceFAZolin IN SWFI 2 GM/20 ML SYRINGE IVP ONE; metroNIDAZOLE-NS PMX 500 MG in SALINE 1 100ML.BAG IVPB ONE
[2018-06-15] MEDS ORDERED: ALVIMOPAN 12 MG CAPSULE PO ONE (11:46)
[2018-06-15] MEDS ORDERED: ACETAMINOPHEN TAB 500 MG TAB PO ONE (12:02)
[2018-06-15] MEDS: LACTATED RINGERS 1,000 ML IV SCH (12:05)
[2018-06-15] MEDS ORDERED: LIDOCAINE 1% 20 ML VIAL (10MG/ML) FOR IV START INTRADERMA ONE (12:09)
[2018-06-15] MEDS ORDERED: MELOXICAM 7.5 MG TAB PO ONE (12:34)
[2018-06-15] MEDS ORDERED: fentaNYL (PF) 50 MCG/ML 2 ML AMP IVP ONE (13:30)
[2018-06-15] MEDS ORDERED: MIDAZOLAM 2 MG/2 ML VIAL IVP ONE (13:30)
[2018-06-15 14:04] LABS: Glucose,Whole Blood 75 mg/dL (75-99)
[2018-06-15] MEDS ORDERED: FENTANYL EPIDURAL PRN (15:21)
[2018-06-15] MEDS ORDERED: NALOXONE 0.4 MG/ML 1 ML VIAL IV PRN (15:21)
[2018-06-15] MEDS ORDERED: ROPIVACAINE EPIDURAL PRN (15:21)
[2018-06-15] MEDS ORDERED: SODIUM CHLORIDE 0.9% EPIDURAL PRN (15:21)
--- NOTE | 2018-06-15 15:44 | P.GSHP ---
History of Present Illness H&P Date: 06/15/18 Chief Complaint: Diverticulitis This is a 37-year-old female who had a recent hospital admission for perforated diverticulitis. Patient's today for low anterior resection. Patient aware the risk of colostomy. Past Medical History Past Medical History: GERD/Reflux, Hypertension Additional Past Medical History / Comment(s): recent admission for diverticulitis & "bowel perforation" per pt.-tx. medically, PCOS, supposed to have sleep study in future History of Any Multi-Drug Resistant Organisms: None Reported Past Surgical History: No Surgical Hx Reported Additional Past Surgical History / Comment(s): wisdom teeth extracted Past Anesthesia/Blood Transfusion Reactions: No Reported Reaction Smoking Status: Never smoker - Past Family History Mother Family Medical History: Asthma, GERD/Reflux, Hypertension Additional Family Medical History / Comment(s): allergies, ibs Father Family Medical History: Hyperlipidemia, Hypertension Medications and Allergies Home Medications Medication Instructions Recorded Confirmed Type Atenolol/Chlorthalidone 0.5 tab PO BID 05/04/18 06/15/18 History [Atenolol-Chlorthalidone 50-25] Potassium Gluconate 99 mg PO W/SUPPER 05/04/18 06/15/18 History metFORMIN HCL [metFORMIN HCL ER] 750 mg PO W/SUPPER 05/04/18 06/15/18 History L.acidoph,Paracasei, B.lactis 1 each PO DAILY 06/08/18 06/15/18 History [Probiotic] Allergies Allergy/AdvReac Type Severity Reaction Status Date / Time No Known Allergies Allergy Verified 06/15/18 11:29 Surgical - Exam Vital Signs Temp Pulse Resp BP Pulse Ox 97.4 F L 56 L 16 115/70 96 06/15/18 12:05 06/15/18 12:05 06/15/18 12:05 06/15/18 12:05 06/15/18 12:05 - General well developed, well nourished, no distress - Eyes PERRL - ENT normal pinna - Neck no masses - Respiratory normal expansion - Cardiovascular Rhythm: regular - Abdomen Abdomen: soft, non tender Assessment and Plan Assessment: History of perforated diverticulum. We'll perform low anterior resection.
[2018-06-15] MEDS ORDERED: MIDAZOLAM 2 MG/2 ML VIAL ONE (16:24)
[2018-06-15] MEDS ORDERED: BUPIVACAINE (PF) 0.5% 30 ML VIAL ONE (16:24)
[2018-06-15] MEDS ORDERED: GLYCOPYRROLATE 0.2 MG/ML 2 ML VIAL ONE (16:24)
[2018-06-15] MEDS ORDERED: HEPARIN SODIUM,PORCINE 5,000 UNIT/ML 1 ML VIAL ONE (16:24)
[2018-06-15] MEDS ORDERED: NEOSTIGMINE 1 MG/ML 10 ML VIAL ONE (16:24)
[2018-06-15] MEDS ORDERED: PROPOFOL 10 MG/ML 20 ML VIAL IV ONE (16:24)
[2018-06-15] MEDS ORDERED: fentaNYL (PF) 50 MCG/ML 2 ML AMP ONE (16:24)
[2018-06-15] MEDS ORDERED: LIDOCAINE 1% INJ 10MG/ML (20 ML MDV) ONE (16:24)
[2018-06-15] MEDS ORDERED: ROCURONIUM BROMIDE 10 MG/ML 10 ML VIAL IV ONE (16:24)
[2018-06-15] MEDS ORDERED: LACTATED RINGERS 1,000 ML IV ONE ×3 (17:09→19:10)
[2018-06-15] MEDS ORDERED: BENZOCAINE/MENTHOL LOZENG 1 EACH LOZENGE MUCOUS MEM PRN (18:12)
[2018-06-15] MEDS ORDERED: METOCLOPRAMIDE 5 MG/ML 2 ML VIAL IVP PRN (18:12)
[2018-06-15] MEDS ORDERED: ONDANSETRON 4 MG/2 ML VIAL IVP PRN (18:12)
[2018-06-15] MEDS: FAMOTIDINE 20 MG/2 ML VIAL IV SCH (21:11)
[2018-06-15] MEDS: D5-0.45% NACL WITH KCL 20MEQ/L 1,000 ML IV SCH (21:11)
[2018-06-16] MEDS: HEPARIN SODIUM,PORCINE 5,000 UNIT/ML 1 ML VIAL SQ SCH ×3 (00:07→15:07)
[2018-06-16] MEDS: D5-0.45% NACL WITH KCL 20MEQ/L 1,000 ML IV SCH ×3 (04:16→20:20)
[2018-06-16] MEDS: LACTATED RINGERS 1,000 ML IV SCH (05:23)
--- NOTE | 2018-06-16 05:57 | P.PN ---
Progress Note - Text Progress Note Date: 06/16/18 patient evaluated POD 1 VAS 3/10 vitals stable Continue Current epidural rate per primary team
[2018-06-16] MEDS: ALVIMOPAN 12 MG CAPSULE PO SCH ×2 (08:31→21:33)
[2018-06-16] MEDS: FAMOTIDINE 20 MG/2 ML VIAL IV SCH ×2 (08:43→21:33)
[2018-06-16 08:49] LABS: Basophils % (A) 0 %; Eosinophils % (A) 0 %; HCT 38.2 % (34.0-46.0); HGB 12.4 gm/dL (11.4-16.0); Lymphocytes # (A) 0.9 k/uL (1.0-4.8); Lymphocytes % (A) 6 %; MCH 27.2 pg (25.0-35.0); MCHC 32.5 g/dL (31.0-37.0); MCV 83.5 fL (80.0-100.0); Mean Platelet Volume 6.4; Monocytes # (A) 0.7 k/uL (0-1.0); Monocytes % (A) 5 %; Neutrophils # (A) 14.3 k/uL (1.3-7.7); Neutrophils % (A) 89 %; Platelet Count 414 k/uL (150-450); RBC 4.57 m/uL (3.80-5.40); RDW 14.8 % (11.5-15.5); WBC 16.1 k/uL (3.8-10.6)
[2018-06-16 09:08] LABS: Potassium 3.4 mmol/L (3.5-5.1)
[2018-06-16 09:09] LABS: Anion Gap 10 mmol/L; Blood Urea Nitrogen 12 mg/dL (7-17); Calcium 8.8 mg/dL (8.4-10.2); Carbon Dioxide 27 mmol/L (22-30); Chloride 102 mmol/L (98-107); Glucose 155 mg/dL (74-99); Sodium 139 mmol/L (137-145)
--- NOTE | 2018-06-16 11:23 | P.CONS ---
History of Present Illness - Reason for Consult Consult date: 06/16/18 Medical management Requesting physician: Santiago Woodall - Chief Complaint Lower anterior resection due to perforated diverticulitis - History of Present Illness This is a 37-year-old female patient of Dr. Thomson. Patient recently hospitalized for perforated diverticulitis approximately 6 weeks prior. At that time patient was treated medically with antibiotics and DC'd home on antibiotics Levaquin and Flagyl with anticipation of surgery for lower anterior resection and possible colostomy. Patient presented to the hospital today for lower anterior resection with Dr. Woodall. Patient has known past medical history of PCOS, GERD, hypertension and recent diverticulitis with perforation. At this time patient is currently postop day 1 that is post lower anterior resection. Patient did not require colostomy. At this time patient is resting comfortably with minimal pain. Epidural is in place patient is currently on clear liquid diet per surgical services. Patient denies any bowel movement. Patient denies chest pain or shortness breath. Patient denies nausea vomiting or diarrhea. Patient denies any urinary burning or frequency but aguiar catheter is in place. Review of Systems please refer to HPI otherwise unremarkable Past Medical History Past Medical History: GERD/Reflux, Hypertension Additional Past Medical History / Comment(s): recent admission for diverticulitis & "bowel perforation" per pt.-tx. medically, PCOS, supposed to have sleep study in future History of Any Multi-Drug Resistant Organisms: None Reported Past Surgical History: No Surgical Hx Reported Additional Past Surgical History / Comment(s): wisdom teeth extracted Past Anesthesia/Blood Transfusion Reactions: No Reported Reaction Past Psychological History: No Psychological Hx Reported Smoking Status: Never smoker Past Alcohol Use History: Occasional Past Drug Use History: None Reported - Past Family History Mother Family Medical History: Asthma, GERD/Reflux, Hypertension Additional Family Medical History / Comment(s): allergies, ibs Father Family Medical History: Hyperlipidemia, Hypertension Medications and Allergies Home Medications Medication Instructions Recorded Confirmed Type Atenolol/Chlorthalidone 0.5 tab PO BID 05/04/18 06/15/18 History [Atenolol-Chlorthalidone 50-25] Potassium Gluconate 99 mg PO W/SUPPER 05/04/18 06/15/18 History metFORMIN HCL [metFORMIN HCL ER] 750 mg PO W/SUPPER 05/04/18 06/15/18 History L.acidoph,Paracasei, B.lactis 1 cap PO DAILY 06/08/18 06/15/18 History [Probiotic] Allergies Allergy/AdvReac Type Severity Reaction Status Date / Time No Known Allergies Allergy Verified 06/15/18 18:28 Physical Exam Vitals: Vital Signs Temp Pulse Pulse Resp BP Pulse Ox 06/16/18 10:11 57 L 15 06/16/18 07:00 98.1 F 57 L 15 100/56 92 L 06/16/18 02:35 108/60 06/15/18 23:00 98.4 F 74 16 98/58 93 L 06/15/18 21:58 74 16 101/67 94 L 06/15/18 21:43 66 16 107/70 93 L 06/15/18 21:28 61 16 103/67 94 L 06/15/18 21:20 95 06/15/18 21:13 57 L 16 103/66 93 L 06/15/18 20:58 85 16 110/69 93 L 06/15/18 20:43 77 16 118/70 95 06/15/18 20:28 57 L 16 103/66 94 L 06/15/18 20:13 67 16 111/72 96 06/15/18 19:58 98.2 F 66 16 120/92 90 L 06/15/18 19:15 64 18 125/70 98 06/15/18 19:00 64 18 131/69 65 L 06/15/18 18:45 63 18 126/63 98 06/15/18 18:25 99.4 F 98 14 130/63 95 06/15/18 13:54 50 L 18 101/58 98 06/15/18 12:05 97.4 F L 56 L 16 115/70 96 Intake and Output 06/15/18 06/16/18 06/16/18 22:59 06:59 14:59 Intake Total 2000 1250 100 Output Total 220 750 Balance 1780 500 100 Intake: IV 2000 Intake, IV Titration 1250 Amount D5-0.45% NaCl with KCl 1250 20Meq/l 1,000 ml @ 125 mls/hr IV .Q8H [facility] Rx#: [id number] Oral 100 Output: Urine 170 750 Uretheral (Aguiar) 750 Estimated Blood Loss 50 Other: Voiding Method Indwelling Catheter Indwelling Catheter Indwelling Catheter Weight 97.976 kg Head normocephalic Neck supple Lungs clear to auscultation bilaterally no wheezing or crackles Heart regular rate and rhythm S1-S2, no rub or gallop Abdomen some bowel sounds. Midline dressing clean dry and intact Extremities no edema Neuro alert and orientated to 3 Results CBC & Chem 7: 06/16/18 08:09 06/16/18 08:09 Labs: Abnormal Lab Results - Last 24 Hours (Table) 06/16/18 06/16/18 Range/Units 08:09 08:09 WBC 16.1 H (3.8-10.6) k/uL Neutrophils # 14.3 H (1.3-7.7) k/uL Lymphocytes # 0.9 L (1.0-4.8) k/uL Potassium 3.4 L (3.5-5.1) mmol/L Glucose 155 H (74-99) mg/dL Assessment and Plan Assessment: 1. Status post lower anterior resection with Dr. Love due to recent diverticulitis with perforation. Patient is currently postop day 1. Patient currently is epidural in place for adequate pain control. Patient remains on clear liquid diet. 2. History of essential hypertension. Home medications resumed. 3. History of PCO S. Patient states she takes her metformin for her PCS. Metformin currently on hold 4. Leukocytosis. Urinary analysis has been ordered. 5. Hypokalemia. Potassium 3.4. Patient currently on D5 half normal saline with 20 of KCl at this time will continue to monitor closely and replace if needed DVT prophylaxis heparin. GI prophylaxis Pepcid A.m. labs ordered Acute for this consultation we will continue to follow patient closely throughout stay Time with Patient: Greater than 30 (Greater than 60% of the total time spent in counseling and coordination of care. I performed an examination of the patient and discussed their management with the Nurse Practitioner. I have reviewed the Nurse Practitioner's notes and agree with the documented findings and plan of care)
[2018-06-16 12:15] LABS: Appearance,Urine Cloudy (Clear); Bilirubin,Urine Negative (Negative); Blood,Urine Small (Negative); Color,Urine Yellow; Glucose,Urine (UA) Negative (Negative); Ketones,Urine Negative (Negative); Leukocyte Esterase,Urine Large (Negative); Mucus,Urine Many /hpf; Nitrite,Urine Negative (Negative); Protein,Urine 1+ (Negative); RBC,Urine 25 /hpf (0-5); Specific Gravity,Urine 1.024 (1.001-1.035); Urobilinogen,Urine <2.0 mg/dL (<2.0); WBC,Urine 34 /hpf (0-5)
--- NOTE | 2018-06-16 16:47 | P.PN ---
Progress Note - Text Progress Note Date: 06/16/18 postoperative day 1. Patient's postoperative day 1 from low anterior resection for perforated diverticulitis. She is doing quite w complaints. On exam her vital signs are stable. Her abdomen is soft. Her incision site is clean dry and intact. Patient will remain on clear liquid diet.
--- NOTE | 2018-06-16 17:05 | P.OP ---
Date of Procedure: 06/15/18 Preoperative Diagnosis: diverticulitis Postoperative Diagnosis: diverticulitis Procedure(s) Performed: low anterior resection Anesthesia: ALLISON Surgeon: Santiago Woodall Estimated Blood Loss (ml): 25 Pathology: other (sigmoid colon) Condition: stable Disposition: PACU Description of Procedure: the patient was placed on the operating table in the supine position. She received IV sedation and then general anesthesia. She was placed in dorsal lithotomy position. Her abdomthe usual sterile fashion. The abdomen was entered through a low midline incision. The Bookwalter retractor placed. The sigmoid colon was palpated. There is evidence of diverticulitis. At this point the proximal sigmoid colon was transected with a MIRTA stapler. And then using the Enseal device the mesentery of the sigmoid colon and rectum was divided. The rectum was then transected with the contour stapl The pursestring device was then placed on the proximal colon. End of the anvil fr was placed into the colon and the pursestring was secured. The assistant quality manager placed the EEA stapler in the patient's rectum and the spike was driven through the rectal staple line. The EEA stapler was then closed and fired. The stapler was withdrawn and 2 complete tissue rings were removed. Using a hydro- dogman/woman the bowel was occluded and then using a rigid sigmoidos the rectum was insufflated with air. There is no evidence of extravasation of air. The abdomen wasn't closed. The fascia was closed with looped #1 PDS suture. The skin was closed sta Patient tolerated procedure well and was sent to recovery in stable condition.
[2018-06-16] MEDS: ATENOLOL 25 MG TAB PO SCH (21:24)
[2018-06-16] MEDS: CHLORTHALIDONE 25 MG TAB PO SCH (21:24)
[2018-06-17] MEDS: HEPARIN SODIUM,PORCINE 5,000 UNIT/ML 1 ML VIAL SQ SCH ×4 (00:20→23:50)
[2018-06-17] MEDS: LACTATED RINGERS 1,000 ML IV SCH (04:07)
[2018-06-17] MEDS: D5-0.45% NACL WITH KCL 20MEQ/L 1,000 ML IV SCH ×3 (04:08→20:41)
--- NOTE | 2018-06-17 06:50 | P.PN ---
Progress Note - Text Progress Note Date: 06/17/18 37 yo female s/p low anterior resection. POD#2. Epidural running at a rate of 6 ml/hr. Adequate pain control.VAS=0/10. No motor deficit, no itching, no headache. No nausea or vomiting. Epidural catheter in place. No redness, no discharge, no fever. Continue same regimen.
[2018-06-17 07:45] LABS: Basophils % (A) 0 %; Eosinophils # (A) 0.1 k/uL (0-0.7); Eosinophils % (A) 1 %; HCT 33.4 % (34.0-46.0); HGB 10.9 gm/dL (11.4-16.0); Lymphocytes # (A) 2.1 k/uL (1.0-4.8); Lymphocytes % (A) 23 %; MCH 27.4 pg (25.0-35.0); MCHC 32.8 g/dL (31.0-37.0); MCV 83.6 fL (80.0-100.0); Mean Platelet Volume 6.2; Monocytes # (A) 0.5 k/uL (0-1.0); Monocytes % (A) 6 %; Neutrophils # (A) 6.5 k/uL (1.3-7.7); Neutrophils % (A) 70 %; Platelet Count 343 k/uL (150-450); RBC 3.99 m/uL (3.80-5.40); RDW 15.1 % (11.5-15.5); WBC 9.3 k/uL (3.8-10.6)
[2018-06-17 07:52] LABS: ALT 29 U/L (9-52); AST 19 U/L (14-36); Albumin 2.9 g/dL (3.5-5.0); Alkaline Phosphatase 39 U/L (38-126); Anion Gap 6 mmol/L; Blood Urea Nitrogen 10 mg/dL (7-17); Carbon Dioxide 30 mmol/L (22-30); Chloride 103 mmol/L (98-107); Glucose 104 mg/dL (74-99); Potassium 2.9 mmol/L (3.5-5.1); Sodium 139 mmol/L (137-145); Total Bilirubin 0.3 mg/dL (0.2-1.3); Total Protein 5.9 g/dL (6.3-8.2)
[2018-06-17] MEDS ORDERED: Potassium Replacement Protocol 1 EACH MISC MISCELLANE PRN (08:15)
[2018-06-17] MEDS: ALVIMOPAN 12 MG CAPSULE PO SCH ×2 (08:39→20:19)
[2018-06-17] MEDS: ATENOLOL 25 MG TAB PO SCH ×2 (08:40→20:15)
[2018-06-17] MEDS: CHLORTHALIDONE 25 MG TAB PO SCH ×2 (08:40→20:16)
[2018-06-17] MEDS: POTASSIUM CHLORIDE ER 20 MEQ TAB.ER PO SCH ×3 (08:41→12:10)
[2018-06-17] MEDS: FAMOTIDINE 20 MG/2 ML VIAL IV SCH ×2 (09:22→20:19)
[2018-06-17] MEDS: HYDROmorphone 1 MG/ML 1 ML SYRINGE IVP PRN ×4 (10:33→22:41)
--- NOTE | 2018-06-17 12:33 | P.PN ---
Subjective Progress Note Date: 06/17/18 37-year-old female seen at the bedside in a postoperative visit epidural apparently fell out this morning patient states pain medication has been effective for pain control. Surgical dressing dry. States is not passing gas is not having a bowel movement indwelling Paul catheter in place Postop June 15 low anterior resection for diverticulitis Objective - Vital Signs Vital signs: Vital Signs Temp 98.2 F 06/17/18 07:00 Pulse 73 06/17/18 10:45 Resp 16 06/17/18 10:45 BP 115/67 06/17/18 07:00 Pulse Ox 93 L 06/17/18 07:00 Intake & Output 06/16/18 06/17/18 06/17/18 18:59 06:59 18:59 Intake Total 330 1687.5 Output Total 1700 Balance 330 -12.5 Intake: Intake, IV Titration 1687.5 Amount D5-0.45% NaCl with KCl 1687.5 20Meq/l 1,000 ml @ 125 mls/hr IV .Q8H [facility] Rx#: [id number] Oral 330 Output: Urine 1700 Uretheral (Paul) 1200 Other: Voiding Method Indwelling Catheter Indwelling Catheter - Exam Physical exam 37-year-old female sitting up in bed appears in no acute distress Lungs adequate air movement Heart S1-S2 audible Abdomen surgical dressing dry surgical tenderness appropriate to hypoactive bowel tones indwelling Paul catheter in place tolerating diet no nausea no vomiting no stool states is not passing gas Extremities no edema - Labs CBC & Chem 7: 06/17/18 07:10 06/17/18 07:10 Labs: Abnormal Lab Results - Last 24 Hours (Table) 06/17/18 06/17/18 Range/Units 07:10 07:10 Hgb 10.9 L (11.4-16.0) gm/dL Hct 33.4 L (34.0-46.0) % Potassium 2.9 L (3.5-5.1) mmol/L Glucose 104 H (74-99) mg/dL Calcium 8.0 L (8.4-10.2) mg/dL Total Protein 5.9 L (6.3-8.2) g/dL Albumin 2.9 L (3.5-5.0) g/dL Microbiology - Last 24 Hours (Table) 06/16/18 11:30 Urine Culture - Preliminary Urine,Catheterized Assessment and Plan Assessment: Impression Low anterior resection sigmoid colon per for diverticulitis done June 15 A recent hospital admission for perforated diverticulitis Leukocytosis suspect reactive History of PCO S on metformin Hypokalemia corrected resolving Plan Continue postop surgical care Increase activity Pain control DVT and GI prophylaxis Continue IV Rocephin as ordered The above impression and plan of care have been discussed and directed by signing physician. Farhana Garcia nurse practitioner acting as scribe for signing physician.
--- NOTE | 2018-06-17 13:02 | P.PN ---
Subjective Progress Note Date: 06/17/18 This is a 37-year-old female patient of Dr. Thomson. Patient recently hospitalized for perforated diverticulitis approximately 6 weeks prior. At that time patient was treated medically with antibiotics and DC'd home on antibiotics Levaquin and Flagyl with anticipation of surgery for lower anterior resection and possible colostomy. Patient presented to the hospital today for lower anterior resection with Dr. Woodall. Patient has known past medical history of PCOS, GERD, hypertension and recent diverticulitis with perforation. At this time patient is currently postop day 1 that is post lower anterior resection. Patient did not require colostomy. At this time patient is resting comfortably with minimal pain. Epidural is in place patient is currently on clear liquid diet per surgical services. Patient denies any bowel movement. Patient denies chest pain or shortness breath. Patient denies nausea vomiting or diarrhea. Patient denies any urinary burning or frequency but aguiar catheter is in place. On 06/17/2018 patient is currently resting in bed. Epidural removed accidentally by patient patient currently has Dilaudid for pain control per surgical services. Patient is on clear liquid diet. Patient is starting to pass gas. Patient has not had bowel movement yet. Dressing clean dry and intact. Patient denies burning or frequency burning or frequency Objective - Vital Signs Vital signs: Vital Signs Temp 98.2 F 06/17/18 07:00 Pulse 73 06/17/18 10:45 Resp 16 06/17/18 10:45 BP 115/67 06/17/18 07:00 Pulse Ox 93 L 06/17/18 07:00 Intake & Output 06/16/18 06/17/18 06/17/18 18:59 06:59 18:59 Intake Total 330 1687.5 Output Total 1700 Balance 330 -12.5 Intake: Intake, IV Titration 1687.5 Amount D5-0.45% NaCl with KCl 1687.5 20Meq/l 1,000 ml @ 125 mls/hr IV .Q8H [facility] Rx#: [id number] Oral 330 Output: Urine 1700 Uretheral (Aguiar) 1200 Other: Voiding Method Indwelling Catheter Indwelling Catheter - Exam Head normocephalic Neck supple Lungs clear to auscultation bilaterally no wheezing or crackles Heart regular rate and rhythm S1-S2, no rub or gallop Abdomen hypoactive bowel sounds. Midline dressing clean dry and intact Extremities no edema Neuro alert and orientated to 3 - Labs CBC & Chem 7: 06/17/18 07:10 06/17/18 07:10 Labs: Abnormal Lab Results - Last 24 Hours (Table) 06/17/18 06/17/18 Range/Units 07:10 07:10 Hgb 10.9 L (11.4-16.0) gm/dL Hct 33.4 L (34.0-46.0) % Potassium 2.9 L (3.5-5.1) mmol/L Glucose 104 H (74-99) mg/dL Calcium 8.0 L (8.4-10.2) mg/dL Total Protein 5.9 L (6.3-8.2) g/dL Albumin 2.9 L (3.5-5.0) g/dL Microbiology - Last 24 Hours (Table) 06/16/18 11:30 Urine Culture - Preliminary Urine,Catheterized Assessment and Plan Assessment: 1. Status post lower anterior resection with Dr. Love due to recent diverticulitis with perforation. Patient is currently postop day 2. Patient currently is epidural in place for adequate pain control. Patient remains on clear liquid diet. 2. History of essential hypertension. Home medications resumed. 3. History of PCO S. Patient states she takes her metformin for her PCS. Metformin currently on hold 4. Leukocytosis. Urinary analysis positive for leukocyte Estrace urine culture has been ordered. Patient started on Rocephin. White Blood cell improving to 9.3. 5. Hypokalemia. Potassium 3.4. Patient currently on D5 half normal saline with 20 of KCl at this time will continue to monitor closely and replace if needed. Potassium 2.9 replace per protocol DVT prophylaxis heparin. GI prophylaxis Pepcid A.m. labs ordered Acute for this consultation we will continue to follow patient closely throughout stay I performed an examination of the patient and discussed their management with the Nurse Practitioner. I have reviewed the Nurse Practitioner's notes and agree with the documented findings and plan of care
[2018-06-18] MEDS: D5-0.45% NACL WITH KCL 20MEQ/L 1,000 ML IV SCH ×3 (04:19→23:34)
[2018-06-18] MEDS: HYDROmorphone 1 MG/ML 1 ML SYRINGE IVP PRN ×3 (06:16→17:08)
[2018-06-18] MEDS: ATENOLOL 25 MG TAB PO SCH ×2 (07:00→21:02)
[2018-06-18] MEDS: CHLORTHALIDONE 25 MG TAB PO SCH ×2 (07:00→21:02)
[2018-06-18] MEDS: HEPARIN SODIUM,PORCINE 5,000 UNIT/ML 1 ML VIAL SQ SCH ×3 (08:53→23:31)
[2018-06-18] MEDS: ALVIMOPAN 12 MG CAPSULE PO SCH ×2 (08:53→20:42)
[2018-06-18] MEDS: FAMOTIDINE 20 MG/2 ML VIAL IV SCH ×2 (08:53→20:42)
--- NOTE | 2018-06-18 10:52 | P.PN ---
Subjective Progress Note Date: 06/18/18 Principal diagnosis: Diverticulitis Patient doing well today. Tolerating full. Passing flatus. She would like oral pain pills. No nausea or vomiting. No labs. Objective - Vital Signs Vital signs: Vital Signs Temp 98.0 F 06/18/18 07:10 Pulse 74 06/18/18 07:10 Resp 18 06/18/18 07:10 BP 110/71 06/18/18 07:10 Pulse Ox 96 06/18/18 07:10 Intake & Output 06/17/18 06/18/18 06/18/18 18:59 06:59 18:59 Intake Total 1035 Output Total 1575 Balance -1575 1035 Intake: Intake, IV Titration 1035 Amount D5-0.45% NaCl with KCl 1035 20Meq/l 1,000 ml @ 125 mls/hr IV .Q8H [facility] Rx#: [id number] Output: Urine 1575 Other: Voiding Method Indwelling Catheter # Voids 4 - Exam Abdomen: Soft, nondistended, dressings clean and dry, minimal tenderness - Labs CBC & Chem 7: 06/17/18 07:10 06/17/18 07:10 Labs: Microbiology - Last 24 Hours (Table) 06/16/18 11:30 Urine Culture - Final Urine,Catheterized Assessment and Plan Plan: Check labs tomorrow. Increase diet. Oral Upperglade.
[2018-06-18 11:20] LABS: Basophils % (A) 0 %; Eosinophils # (A) 0.4 k/uL (0-0.7); Eosinophils % (A) 6 %; HCT 36.4 % (34.0-46.0); HGB 11.5 gm/dL (11.4-16.0); Lymphocytes # (A) 1.9 k/uL (1.0-4.8); Lymphocytes % (A) 25 %; MCH 26.6 pg (25.0-35.0); MCHC 31.5 g/dL (31.0-37.0); MCV 84.3 fL (80.0-100.0); Mean Platelet Volume 6.7; Monocytes # (A) 0.4 k/uL (0-1.0); Monocytes % (A) 5 %; Neutrophils # (A) 4.7 k/uL (1.3-7.7); Neutrophils % (A) 63 %; Platelet Count 383 k/uL (150-450); RBC 4.31 m/uL (3.80-5.40); WBC 7.5 k/uL (3.8-10.6)
[2018-06-18 11:28] LABS: ALT 31 U/L (9-52); AST 26 U/L (14-36); Albumin 3.1 g/dL (3.5-5.0); Alkaline Phosphatase 43 U/L (38-126); Anion Gap 7 mmol/L; Blood Urea Nitrogen 5 mg/dL (7-17); Calcium 8.6 mg/dL (8.4-10.2); Carbon Dioxide 33 mmol/L (22-30); Chloride 101 mmol/L (98-107); Glucose 98 mg/dL (74-99); Potassium 3.4 mmol/L (3.5-5.1); Sodium 141 mmol/L (137-145); Total Bilirubin 0.3 mg/dL (0.2-1.3); Total Protein 6.2 g/dL (6.3-8.2)
[2018-06-18] MEDS: LACTATED RINGERS 1,000 ML IV SCH (12:37)
--- NOTE | 2018-06-18 14:01 | P.PN ---
Subjective Progress Note Date: 06/18/18 This is a 37-year-old female patient of Dr. Thomson. Patient recently hospitalized for perforated diverticulitis approximately 6 weeks prior. At that time patient was treated medically with antibiotics and DC'd home on antibiotics Levaquin and Flagyl with anticipation of surgery for lower anterior resection and possible colostomy. Patient presented to the hospital today for lower anterior resection with Dr. Woodall. Patient has known past medical history of PCOS, GERD, hypertension and recent diverticulitis with perforation. At this time patient is currently postop day 1 that is post lower anterior resection. Patient did not require colostomy. At this time patient is resting comfortably with minimal pain. Epidural is in place patient is currently on clear liquid diet per surgical services. Patient denies any bowel movement. Patient denies chest pain or shortness breath. Patient denies nausea vomiting or diarrhea. Patient denies any urinary burning or frequency but aguiar catheter is in place. On 06/17/2018 patient is currently resting in bed. Epidural removed accidentally by patient patient currently has Dilaudid for pain control per surgical services. Patient is on clear liquid diet. Patient is starting to pass gas. Patient has not had bowel movement yet. Dressing clean dry and intact. Patient denies burning or frequency burning or frequency Objective - Vital Signs Vital signs: Vital Signs Temp 98.0 F 06/18/18 07:10 Pulse 74 06/18/18 07:10 Resp 18 06/18/18 07:10 BP 110/71 06/18/18 07:10 Pulse Ox 96 06/18/18 07:10 Intake & Output 06/17/18 06/18/18 06/18/18 18:59 06:59 18:59 Intake Total 1035 Output Total 1575 Balance -1575 1035 Intake: Intake, IV Titration 1035 Amount D5-0.45% NaCl with KCl 1035 20Meq/l 1,000 ml @ 125 mls/hr IV .Q8H [facility] Rx#: [id number] Output: Urine 1575 Other: Voiding Method Indwelling Catheter # Voids 4 - Exam Head normocephalic and atraumatic Neck supple no JVD no goiter Lungs clear to auscultation bilaterally no wheezing or crackles Heart regular rate and rhythm S1-S2, no rub or gallop Abdomen hypoactive bowel sounds. Midline dressing clean dry and intact Extremities no edema no cyanosis or clubbing Neuro alert and orientated to 3 - Labs CBC & Chem 7: 06/18/18 10:05 06/18/18 10:05 Labs: Abnormal Lab Results - Last 24 Hours (Table) 06/18/18 Range/Units 10:05 Potassium 3.4 L (3.5-5.1) mmol/L Carbon Dioxide 33 H (22-30) mmol/L BUN 5 L (7-17) mg/dL Total Protein 6.2 L (6.3-8.2) g/dL Albumin 3.1 L (3.5-5.0) g/dL Microbiology - Last 24 Hours (Table) 06/16/18 11:30 Urine Culture - Final Urine,Catheterized Assessment and Plan Plan: 1. Status post lower anterior resection with Dr. Love due to recent diverticulitis with perforation. Patient is currently postop day 2. Patient currently is epidural in place for adequate pain control. Patient remains on clear liquid diet. 2. History of essential hypertension. Home medications resumed. 3. History of PCO S. Patient states she takes her metformin for her PCS. Metformin currently on hold 4. Leukocytosis. Urinary analysis positive for leukocyte Estrace urine culture has been ordered. Patient started on Rocephin. White Blood cell improving to 9.3. 5. Hypokalemia. Potassium 3.4. Patient currently on D5 half normal saline with 20 of KCl at this time will continue to monitor closely and replace if needed. Potassium 2.9 replace per protocol DVT prophylaxis heparin. GI prophylaxis Pepcid A.m. labs ordered Acute for this consultation we will continue to follow patient closely throughout stay
[2018-06-18] MEDS ORDERED: HYDROmorphone 1 MG/ML 1 ML SYRINGE IVP PRN (17:36)
[2018-06-18] MEDS: POTASSIUM CHLORIDE ER 20 MEQ TAB.ER PO SCH ×2 (20:42→23:30)
[2018-06-18] MEDS: HYDROcodone/APAP 5-325MG 1 EACH TAB PO PRN (20:47)
[2018-06-19] MEDS: HYDROcodone/APAP 5-325MG 1 EACH TAB PO PRN ×4 (03:12→20:45)
[2018-06-19] MEDS: LACTATED RINGERS 1,000 ML IV SCH ×2 (05:47→22:48)
[2018-06-19] MEDS: D5-0.45% NACL WITH KCL 20MEQ/L 1,000 ML IV SCH (06:19)
[2018-06-19] MEDS: CHLORTHALIDONE 25 MG TAB PO SCH ×2 (07:00→20:51)
[2018-06-19] MEDS: ATENOLOL 25 MG TAB PO SCH ×2 (07:00→20:50)
[2018-06-19 07:42] LABS: Basophils % (A) 0 %; Eosinophils # (A) 0.6 k/uL (0-0.7); Eosinophils % (A) 8 %; HCT 35.4 % (34.0-46.0); HGB 11.3 gm/dL (11.4-16.0); Lymphocytes % (A) 28 %; MCH 26.5 pg (25.0-35.0); MCHC 31.9 g/dL (31.0-37.0); MCV 83.1 fL (80.0-100.0); Mean Platelet Volume 6.6; Monocytes # (A) 0.3 k/uL (0-1.0); Monocytes % (A) 5 %; Neutrophils % (A) 57 %; Platelet Count 371 k/uL (150-450); RBC 4.26 m/uL (3.80-5.40); RDW 14.9 % (11.5-15.5); WBC 7.1 k/uL (3.8-10.6)
[2018-06-19 07:52] LABS: ALT 40 U/L (9-52); AST 32 U/L (14-36); Alkaline Phosphatase 43 U/L (38-126); Anion Gap 6 mmol/L; Blood Urea Nitrogen 6 mg/dL (7-17); Calcium 8.4 mg/dL (8.4-10.2); Carbon Dioxide 28 mmol/L (22-30); Chloride 105 mmol/L (98-107); Glucose 100 mg/dL (74-99); Potassium 3.7 mmol/L (3.5-5.1); Sodium 139 mmol/L (137-145); Total Bilirubin 0.4 mg/dL (0.2-1.3); Total Protein 5.9 g/dL (6.3-8.2)
[2018-06-19] MEDS: FAMOTIDINE 20 MG/2 ML VIAL IV SCH ×2 (09:33→20:45)
[2018-06-19] MEDS: HEPARIN SODIUM,PORCINE 5,000 UNIT/ML 1 ML VIAL SQ SCH ×3 (09:33→23:19)
[2018-06-19] MEDS: ALVIMOPAN 12 MG CAPSULE PO SCH ×2 (10:19→20:45)
--- NOTE | 2018-06-19 11:44 | P.PN ---
Subjective Progress Note Date: 06/19/18 Principal diagnosis: Diverticulitis Patient doing well today. She is having some stools now. T-max 99.7. White blood cell count normal. Tolerating diet. Objective - Vital Signs Vital signs: Vital Signs Temp 97.6 F 06/19/18 07:40 Pulse 81 06/19/18 07:40 Resp 16 06/19/18 07:40 BP 118/77 06/19/18 07:40 Pulse Ox 95 06/19/18 07:40 Intake & Output 06/18/18 06/19/18 06/19/18 18:59 06:59 18:59 Intake Total 750 650 Balance 750 650 Intake: Intake, IV Titration 750 650 Amount D5-0.45% NaCl with KCl 650 650 20Meq/l 1,000 ml @ 75 mls /hr IV .[id number] [facility] Rx#: [id number] cefTRIAXone 1,000 mg In 100 Sodium Chloride 0.9% 50 ml @ 100 mls/hr IVPB Q24HR [facility] Rx#:[id number] Other: Voiding Method Toilet # Voids 2 - Exam Abdomen: Soft, nondistended, incisions clean and dry, dressing intact - Labs CBC & Chem 7: 06/19/18 06:55 06/19/18 06:55 Labs: Abnormal Lab Results - Last 24 Hours (Table) 06/19/18 06/19/18 Range/Units 06:55 06:55 Hgb 11.3 L (11.4-16.0) gm/dL BUN 6 L (7-17) mg/dL Glucose 100 H (74-99) mg/dL Total Protein 5.9 L (6.3-8.2) g/dL Albumin 3.0 L (3.5-5.0) g/dL Assessment and Plan Plan: Continue advancing diet. Ambulate. Anticipate discharge tomorrow.
--- NOTE | 2018-06-19 11:46 | P.PN ---
Subjective Progress Note Date: 06/19/18 This is a 37-year-old female patient of Dr. Thomson. Patient recently hospitalized for perforated diverticulitis approximately 6 weeks prior. At that time patient was treated medically with antibiotics and DC'd home on antibiotics Levaquin and Flagyl with anticipation of surgery for lower anterior resection and possible colostomy. Patient presented to the hospital today for lower anterior resection with Dr. Woodall. Patient has known past medical history of PCOS, GERD, hypertension and recent diverticulitis with perforation. At this time patient is currently postop day 1 that is post lower anterior resection. Patient did not require colostomy. At this time patient is resting comfortably with minimal pain. Epidural is in place patient is currently on clear liquid diet per surgical services. Patient denies any bowel movement. Patient denies chest pain or shortness breath. Patient denies nausea vomiting or diarrhea. Patient denies any urinary burning or frequency but aguiar catheter is in place. On 06/17/2018 patient is currently resting in bed. Epidural removed accidentally by patient patient currently has Dilaudid for pain control per surgical services. Patient is on clear liquid diet. Patient is starting to pass gas. Patient has not had bowel movement yet. Dressing clean dry and intact. Patient denies burning or frequency burning or frequency. On 06/19/2018 patient is alert and oriented 3 in no apparent distress pain is reasonably well controlled she denies any fever or chills no headache or dizziness no chest pain no shortness of breath no cough no nausea or vomiting no diarrhea and no urinary symptoms. Patient is passing gas she had 2 bowel movements yesterday no bowel movements today Objective - Vital Signs Vital signs: Vital Signs Temp 97.6 F 06/19/18 07:40 Pulse 81 06/19/18 07:40 Resp 16 06/19/18 07:40 BP 118/77 06/19/18 07:40 Pulse Ox 95 06/19/18 07:40 Intake & Output 06/18/18 06/19/18 06/19/18 18:59 06:59 18:59 Intake Total 750 650 Balance 750 650 Intake: Intake, IV Titration 750 650 Amount D5-0.45% NaCl with KCl 650 650 20Meq/l 1,000 ml @ 75 mls /hr IV .[id number] [facility] Rx#: [id number] cefTRIAXone 1,000 mg In 100 Sodium Chloride 0.9% 50 ml @ 100 mls/hr IVPB Q24HR [facility] Rx#:[id number] Other: Voiding Method Toilet # Voids 2 - Exam Head normocephalic and atraumatic Neck supple no JVD no goiter Lungs clear to auscultation bilaterally no wheezing or crackles Heart regular rate and rhythm S1-S2, no rub or gallop Abdomen hypoactive bowel sounds. Midline dressing clean dry and intact Extremities no edema no cyanosis or clubbing Neuro alert and orientated to 3 - Labs CBC & Chem 7: 06/19/18 06:55 06/19/18 06:55 Labs: Abnormal Lab Results - Last 24 Hours (Table) 06/19/18 06/19/18 Range/Units 06:55 06:55 Hgb 11.3 L (11.4-16.0) gm/dL BUN 6 L (7-17) mg/dL Glucose 100 H (74-99) mg/dL Total Protein 5.9 L (6.3-8.2) g/dL Albumin 3.0 L (3.5-5.0) g/dL Assessment and Plan Plan: 1. Status post lower anterior resection with Dr. Love due to recent diverticulitis with perforation. Patient is currently postop day 2. Patient currently is epidural in place for adequate pain control. Patient remains on clear liquid diet. 2. History of essential hypertension. Home medications resumed. 3. History of PCO S. Patient states she takes her metformin for her PCS. Metformin currently on hold 4. Leukocytosis. Urinary analysis positive for leukocyte Estrace urine culture has been ordered. Patient started on Rocephin. White Blood cell improving to 9.3. 5. Hypokalemia. Potassium 3.4. Patient currently on D5 half normal saline with 20 of KCl at this time will continue to monitor closely and replace if needed. Potassium 2.9 replace per protocol DVT prophylaxis heparin. GI prophylaxis Pepcid A.m. labs ordered Acute for this consultation we will continue to follow patient closely throughout stay
[2018-06-20 02:40] VITALS: RESP 16
[2018-06-20] MEDS: HYDROcodone/APAP 5-325MG 1 EACH TAB PO PRN (05:36)
[2018-06-20] MEDS: ATENOLOL 25 MG TAB PO SCH (07:34)
[2018-06-20] MEDS: CHLORTHALIDONE 25 MG TAB PO SCH ×2 (07:36→07:37)
[2018-06-20] MEDS: ALVIMOPAN 12 MG CAPSULE PO SCH (07:37)
[2018-06-20] MEDS: FAMOTIDINE 20 MG/2 ML VIAL IV SCH (07:37)
[2018-06-20] MEDS: HEPARIN SODIUM,PORCINE 5,000 UNIT/ML 1 ML VIAL SQ SCH (07:38)
[2018-06-20 08:14] VITALS: BP 100/64; PULSE 75; TEMP 98.4
[2018-06-20 09:13] LABS: Basophils % (A) 0 %; Eosinophils # (A) 0.7 k/uL (0-0.7); Eosinophils % (A) 11 %; HCT 36.9 % (34.0-46.0); Lymphocytes # (A) 1.9 k/uL (1.0-4.8); Lymphocytes % (A) 28 %; MCH 27.1 pg (25.0-35.0); MCHC 32.4 g/dL (31.0-37.0); MCV 83.6 fL (80.0-100.0); Mean Platelet Volume 6.6; Monocytes # (A) 0.3 k/uL (0-1.0); Monocytes % (A) 5 %; Neutrophils # (A) 3.8 k/uL (1.3-7.7); Neutrophils % (A) 56 %; Platelet Count 429 k/uL (150-450); RBC 4.42 m/uL (3.80-5.40); RDW 14.9 % (11.5-15.5); WBC 6.8 k/uL (3.8-10.6)
[2018-06-20 09:26] LABS: ALT 50 U/L (9-52); AST 43 U/L (14-36); Albumin 3.3 g/dL (3.5-5.0); Alkaline Phosphatase 50 U/L (38-126); Anion Gap 11 mmol/L; Blood Urea Nitrogen 11 mg/dL (7-17); Calcium 8.5 mg/dL (8.4-10.2); Carbon Dioxide 26 mmol/L (22-30); Chloride 104 mmol/L (98-107); Glucose 89 mg/dL (74-99); Potassium 3.7 mmol/L (3.5-5.1); Sodium 141 mmol/L (137-145); Total Bilirubin 0.4 mg/dL (0.2-1.3); Total Protein 6.3 g/dL (6.3-8.2)
--- NOTE | 2018-06-20 09:33 | P.PN ---
Subjective Progress Note Date: 06/20/18 This is a 37-year-old female patient of Dr. Thomson. Patient recently hospitalized for perforated diverticulitis approximately 6 weeks prior. At that time patient was treated medically with antibiotics and DC'd home on antibiotics Levaquin and Flagyl with anticipation of surgery for lower anterior resection and possible colostomy. Patient presented to the hospital today for lower anterior resection with Dr. Woodall. Patient has known past medical history of PCOS, GERD, hypertension and recent diverticulitis with perforation. At this time patient is currently postop day 1 that is post lower anterior resection. Patient did not require colostomy. At this time patient is resting comfortably with minimal pain. Epidural is in place patient is currently on clear liquid diet per surgical services. Patient denies any bowel movement. Patient denies chest pain or shortness breath. Patient denies nausea vomiting or diarrhea. Patient denies any urinary burning or frequency but aguiar catheter is in place. On 06/17/2018 patient is currently resting in bed. Epidural removed accidentally by patient patient currently has Dilaudid for pain control per surgical services. Patient is on clear liquid diet. Patient is starting to pass gas. Patient has not had bowel movement yet. Dressing clean dry and intact. Patient denies burning or frequency burning or frequency. On 06/19/2018 patient is alert and oriented 3 in no apparent distress pain is reasonably well controlled she denies any fever or chills no headache or dizziness no chest pain no shortness of breath no cough no nausea or vomiting no diarrhea and no urinary symptoms. Patient is passing gas she had 2 bowel movements yesterday no bowel movements today On 06/20/2018 patient is alert and oriented 3. Patient has been having bowel movements. Patient has been tolerating diet. Potassium currently 3.7. Patient has been up walking around. Patient denies chest pain or shortness of breath. Patient denies nausea vomiting or diarrhea. Patient denies any urinary burning or frequency. Objective - Vital Signs Vital signs: Vital Signs Temp 98.4 F 06/20/18 07:00 Pulse 75 06/20/18 07:00 Resp 16 06/20/18 07:00 BP 100/64 06/20/18 07:00 Pulse Ox 97 06/20/18 07:00 Intake & Output 06/19/18 06/20/18 06/20/18 18:59 06:59 18:59 Intake Total 500 400 Balance 500 400 Intake: Oral 500 400 Other: Voiding Method Toilet # Voids 2 - Exam Head normocephalic Neck supple Lungs clear to auscultation bilaterally no wheezing or crackles Heart regular rate and rhythm S1-S2, no rub or gallop Abdomen active bowel sounds. Midline dressing clean dry and intact Extremities no edema Neuro alert and orientated to 3 - Labs CBC & Chem 7: 06/20/18 08:07 06/20/18 08:07 Labs: Abnormal Lab Results - Last 24 Hours (Table) 06/20/18 Range/Units 08:07 AST 43 H (14-36) U/L Albumin 3.3 L (3.5-5.0) g/dL Assessment and Plan Assessment: 1. Status post lower anterior resection with Dr. Love due to recent diverticulitis with perforation. Patient is currently postop day 2. Patient currently is epidural in place for adequate pain control. Patient remains on clear liquid diet. 2. History of essential hypertension. Home medications resumed. 3. History of PCOS. Patient states she takes her metformin for her PCS. Metformin currently on hold 4. Leukocytosis. Urinary analysis positive for leukocyte Estrace urine culture has been ordered. Patient started on Rocephin. White Blood cell improving to 9.3. Urine culture negative 5. Hypokalemia. Potassium 3.4. Patient currently on D5 half normal saline with 20 of KCl at this time will continue to monitor closely and replace if needed. Potassium 2.9 replace per protocol. Improved potassium 3.7 DVT prophylaxis heparin. GI prophylaxis Pepcid Anticipate discharge in the next 24-48 hours per surgical team I performed an examination of the patient and discussed their management with the Nurse Practitioner. I have reviewed the Nurse Practitioner's notes and agree with the documented findings and plan of care
--- NOTE | 2018-06-20 12:18 | P.DS ---
Providers Date of admission: 06/15/18 12:39 Expected date of discharge: 06/20/18 Attending physician: Santiago Woodall Consults: 06/15/18 18:12 Consult Physician Routine Consulting Provider: Brooklyn Casas Consult Reason/Comments: Management Do you want consulting provider notified?: Yes [facility] Course: 37-year-old female who was recently hospitalized for perforated diverticulitis approximately 6 weeks ago. That time patient was treated medically with antibiotics and sent home on oral antibiotic Levaquin and Flagyl with anticipation of surgery for a low anterior resection with possible colostomy. Patient presented this admission to undergo a low anterior resection for diverticulitis No postop events. a prevena system was applied interoperative. Impression discharge diagnosis Postop 15 of June low anterior resection for diverticulitis History of PCO S Essential hypertension Leukocytosis suspect reactive Hypokalemia corrected resolved Recent proximally 6 weeks ago hospitalization for perforated diverticulitis completed antibiotic Flagyl and Levaquin The above impression and plan of care have been discussed and directed by signing physician. Farhana Garcia nurse practitioner acting as scribe for signing physician. Plan - Discharge Summary Discharge Rx Participant: Yes New Discharge Prescriptions: New HYDROcodone/APAP 5-325MG [[place] 5-325] 1 each PO Q4HR PRN #18 tab PRN Reason: Pain Continue Potassium Gluconate 99 mg PO W/SUPPER metFORMIN HCL [metFORMIN HCL ER] 750 mg PO W/SUPPER Atenolol/Chlorthalidone [Atenolol-Chlorthalidone 50-25] 0.5 tab PO BID L.acidoph,Paracasei, B.lactis [Probiotic] 1 cap PO DAILY Discharge Medication List Atenolol/Chlorthalidone [Atenolol-Chlorthalidone 50-25] 0.5 tab PO BID 05/04/18 [History] Potassium Gluconate 99 mg PO W/SUPPER 05/04/18 [History] metFORMIN HCL [metFORMIN HCL ER] 750 mg PO W/SUPPER 05/04/18 [History] L.acidoph,Paracasei, B.lactis [Probiotic] 1 cap PO DAILY 06/08/18 [History] HYDROcodone/APAP 5-325MG [[place] 5-325] 1 each PO Q4HR PRN #18 tab 12/03/18 [Rx] Follow up Appointment(s)/Referral(s): Santiago Woodall MD [STAFF PHYSICIAN] - 06/28/18 3:00 pm Activity/Diet/Wound Care/Special Instructions: No tub bath for six weeks. Shower daily. No lifting over 10 pounds for the next 2 weeks. Remove the wound VAC on Wednesday at home May use ice packs to surgical site. No driving while taking narcotic for pain. Low fiber diet Discharge Disposition: HOME SELF-CARE
== END 2018-06-20 14:28 | disposition home or self-care (01) | DRG 331 ==
LOC: 2ORMAIN 12:39 → 4SSUR 18:59
PROVIDERS: ADMIT Surgery; ATTEND Surgery
PROC: 0DBN0ZZ Excision of Sigmoid Colon, Open Approach (ICD-10-PCS; principal; 2018-06-15 13:35)
DX: K57.32 Diverticulitis of large intestine without perforation or abscess without bleeding (principal); D72.829 Elevated white blood cell count, unspecified; E87.6 Hypokalemia; K21.9 Gastro-esophageal reflux disease without esophagitis; I10 Essential (primary) hypertension; E28.2 Polycystic ovarian syndrome; Z79.84 Long term (current) use of oral hypoglycemic drugs; Z79.899 Other long term (current) drug therapy; Z82.5 Family history of asthma and other chronic lower respiratory diseases; Z82.49 Family history of ischemic heart disease and other diseases of the circulatory system; Z83.49 Family history of other endocrine, nutritional and metabolic diseases; Z83.79 Family history of other diseases of the digestive system
CPT/HCPCS: 80048; 80053; 81001; 81025; 85025; 86850; 86900; 86901; 87086; 88307

== ENCOUNTER → 2021-03-17 | Outpatient (CLI) | payer BC ==
--- NOTE | 2021-03-19 11:10 | MM ---
Reason for exam: screening (asymptomatic). Baseline mammogram. History: Patient is nulliparous. Physical Findings: Nurse did not find any significant physical abnormalities on exam. MG Screening Mammo w CAD Bilateral CC and MLO view(s) were taken. There are scattered fibroglandular densities. No significant finding. ASSESSMENT: Benign, BI-RAD 2 RECOMMENDATION: Routine screening mammogram of both breasts in 1 year.
== END | disposition home or self-care (01) ==
LOC: RADMAMWWP 14:04
PROVIDERS: ATTEND Family Medicine
DX: Z12.31 Encounter for screening mammogram for malignant neoplasm of breast (principal)
CPT/HCPCS: 77067

== ENCOUNTER → 2024-02-23 | Outpatient (CLI) | payer OTHER ==
--- NOTE | 2024-03-16 14:56 | MM ---
Reason for Exam: Screening (asymptomatic). Last mammogram was performed 3 year(s) and 0 month(s) ago. Patient History: Menarche at age 15. Patient has no children. Last menstrual period: 01/03/2024 Risk Values: Kiera 5 year model risk: 0.7%. NCI Lifetime model risk: 9.9%. Prior Study Comparison: 03/17/2021 Bilateral Screening Mammogram, [facility]. Tissue Density: The breasts are almost entirely fatty. Findings: Analyzed By CAD. Right breast: There is no suspicious group of microcalcifications or new suspicious mass. Left breast: There is no suspicious group of microcalcifications or new suspicious mass. Overall Assessment: Negative, BI-RAD 1 Management: Screening Mammogram of both breasts in [address] [facility] will attempt to contact patient to return for supplemental views and ultrasound if indicated. Patient should continue monthly self-breast exams. A clinical breast exam by your physician is recommended on an annual basis. This exam should not preclude additional follow-up of suspicious palpable abnormalities. Note on Kiera scores and lifetime risk: 1. A Kiera score greater than 3% is considered moderate risk. If this is the case, consider specialist referral to assess eligibility for a risk reducing agent. 2. If overall lifetime risk for the development of breast cancer is 20% or higher, the patient may qualify for future screening with alternating mammogram and breast MRI. Electronically signed and approved by: Lisandro Woodruff DO
== END | disposition home or self-care (01) ==
LOC: RADMAMWWP 12:00
PROVIDERS: ATTEND Family Medicine
DX: Z12.31 Encounter for screening mammogram for malignant neoplasm of breast
CPT/HCPCS: 77063; 77067